=== PATIENT | female | born 1985 | race Caucasian/White ===

== ENCOUNTER 2016-09-21 12:23 | Outpatient (CLI) | payer OTHER ==
[~2016-09-21] VITALS: Ht 152.4 cm; Wt 68.7 kg
[~2016-09-21 12:23] MED LIST: CIPR500T4 PO; INSU100V23 SC; NPH,100V10 SC; ONDA4TAB35 PO; TRAM50TA2 PO
[2016-09-21] MEDS ORDERED: ONDANSETRON 4 MG INJ IV STA (12:40)
[2016-09-21] MEDS ORDERED: LACTATED RINGER'S 1,000 ML IV* SCH (13:00)
[2016-09-21 13:06] VITALS: BP 154/90; PULSE 92; RESP 20; Ht 152.4 cm; Wt 68.7 kg
--- NOTE | 2016-09-21 13:09 | RADRPT ---
PROCEDURE: OB ultrasound for biophysical profile CLINICAL INDICATION: labor TECHNIQUE: Multiple sonographic images of the pelvis were obtained. Transabdominal views of the g ravid uterus are available for review. The images were reviewed on a PACS workstation. COMPARISON: None FINDINGS: breathing movement = 2/2 tone = 2/2 motion = 2/2 JAYCEE = 2/2 JAYCEE = 12.2 cm Single live intrauterine with cardiac activity, which was not recorded. posit ion is breech. The placenta is posterior. IMPRESSION: 1. Single live intrauterine gestation. 2. Biophysical profile = 8/8. 3. JAYCEE = 12.2 cm. 4. Breech presentation. RPTAT: HH .Toshia Escobedo MD, Date Time Electronically viewed and signed by .Toshia Escobedo MD, on 09/21/2016 13:08 .G/
[2016-09-21 13:43] LABS: ADD SCAN DIFF NO
[2016-09-21] MEDS ORDERED: PRENAT PO (13:48)
[2016-09-21] MEDS ORDERED: INSU100C SQ (13:50)
--- NOTE | 2016-09-21 13:50 | HP ---
Date/Time of Note Date/Time of Note DATE: 09/21/16 TIME: 13:42 OB - History Hx of Present Free Text/Dictation OB Triage Pt is a 31yo at 25+1 with T2DM and hx of C/S x3 between 36 and 37wks GA for PIH, now presenting to OB triage c/o bilateral lower quadrant pain preceded by multiple episodes of N/V/D after eating chicken dinner last night. Pt reports feeling hungry but being unable to tolerate food. She attempted to eat this AM and vomited twice. Reports decreased FM this afternoon although had normal FM this AM. Denies LOF, VB, UCs, RIVERS, visual changes or RUQ pain. PROCEDURE: OB ultrasound for biophysical profile CLINICAL INDICATION: labor TECHNIQUE: Multiple sonographic images of the pelvis were obtained. Transabdominal views of the gravid uterus are available for review. The images were reviewed on a PACS workstation. COMPARISON: None FINDINGS: breathing movement = 2/2 tone = 2/2 motion = 2/2 JAYCEE = 2/2 JAYCEE = 12.2 cm Single live intrauterine with cardiac activity, which was not recorded. position is breech. The placenta is posterior. IMPRESSION: 1. Single live intrauterine gestation. 2. Biophysical profile = 8/8. 3. JAYCEE = 12.2 cm. 4. Breech presentation. Estimated Due Date: Jan 03, 2017 : 5 Para: 3 Care: Good Care Obstetrical Complications: Other (T2DM on insulin) Past Family/Social History * Past Medical, Surgical, Family and Obstetric Histories reviewed with patient. chart not available. OB Admission Exam Vital Signs Vital Signs Vital Signs Date Time Temp Pulse Resp B/P Pulse Ox O2 Delivery O2 Flow Rate FiO2 09/21/16 13:06 98.6 92 20 154/90 Room Air BPs 152/88, 137/77, 117/71, 115/70, 125/67, 120/68, 116/70, 119/74, 119/71 Physical Exam HEENT: WNL Heart: Rhythm Normal Lungs: Clear Abdomen: Abnormal (Min TTP with deep palpation in bilateral lower quadrants. No R/R/G) Extremities: Normal Heart Rate: 150's Accelerations: Accelerations Present (10x10) Decelerations: Variable Decelerations Varibility: Moderate Contractions on Admission: None OB Assessment/Plan Other Assessment: GI distress likely food-related Reassuring status Elevated BPs, unsustained Other plan: Pt with signs/sxs of dehydration on admission. Pt s/p IV hydration and IV antiemetic and able to tolerate POs without N/V prior to discharge home. Pain improved spontaneously as well. Initially pt with mild range BPs which then resolved and remained normal for the majority of triage evaluation. Given pt has hx of PIH with prior pregnancies and protein in urine today, will discharge with 24hr urine collection and strict PreE precautions. Pt remained asymptomatic from PreE standpoint during evaluation. Pt will return to triage in 2d to drop off 24hr urine and for BP check. Will plan to repeat NST/JAYCEE and labs if BPs elevated at that time. In addition to PreE precautions, N/V, PTL and PPROM precautions reviewed as well. Questions answered to patient's satisfaction AYAN BRIONES MD Sep 21, 2016 13:50
[2016-09-21 13:52] LABS: BASOPHILS % 0.2 % (0.0-2.0); EOSINOPHILS % 0.3 % (0.0-7.0); HEMATOCRIT 37.3 % (37.0-47.0); HEMOGLOBIN 12.9 g/dl (12.0-16.0); LYMPHOCYTES # 0.7 10^3/ul (0.8-2.9); LYMPHOCYTES % 6.5 % (15.0-51.0); MEAN CORPUSCULAR HEMOGLOBIN 28.4 pg (29.0-33.0); MEAN CORPUSCULAR HGB CONC 34.6 g/dl (32.0-37.0); MEAN PLATELET VOLUME 11.6 fl (7.4-10.4); MONOCYTE # 0.4 10^3/ul (0.3-0.9); MONOCYTES % 4.1 % (0.0-11.0); NEUTROPHIL # 9.2 10^3/ul (1.6-7.5); NEUTROPHILS % 88.5 % (39.0-77.0); PLATELET COUNT 220 10^3/UL (140-415); RED BLOOD COUNT 4.55 10^6/ul (4.20-5.40); RED CELL DISTRIBUTION WIDTH 15.4 % (11.5-14.5); WHITE BLOOD COUNT 10.4 10^3/ul (4.8-10.8)
[2016-09-21 13:56] LABS: ALBUMIN 3.5 g/dl (3.3-4.9); POTASSIUM 3.9 mmol/L (3.5-5.1)
[2016-09-21 13:58] LABS: CREATININE 0.35 mg/dl (0.44-1.00)
[2016-09-21 13:59] LABS: ALBUMIN/GLOBULIN RATIO 0.94; BILIRUBIN,INDIRECT 0.3 mg/dl (0-1.1); BILIRUBIN,TOTAL 0.3 mg/dl (0.2-1.3); TOTAL PROTEIN 7.2 g/dl (6.1-8.1); URIC ACID 3.1 mg/dl (3.1-7.9)
[2016-09-21 14:00] LABS: CALCIUM 8.6 mg/dl (8.4-10.2)
[2016-09-21] MEDS ORDERED: NPH,100I5 SQ (14:48)
[2016-09-21 15:00] LABS: URINE BLOOD (Dip) POC Negative (NEGATIVE)
[2016-09-21 15:35] LABS: ADD UMIC YES; URINE BILIRUBIN (Dip) NEGATIVE (NEGATIVE); URINE BLOOD (Dip) NEGATIVE (NEGATIVE); URINE COLOR YELLOW (YELLOW); URINE KETONES (Dip) 3+ (NEGATIVE); URINE LEUKOCYTE ESTERASE (Dip) TRACE (NEGATIVE); URINE NITRITE (Dip) NEGATIVE (NEGATIVE); URINE TOTAL PROTEIN (Dip) TRACE (NEGATIVE); URINE UROBILINOGEN (Dip) 0.2 E.U./dL (0.1-1.0)
[2016-09-21 15:53] LABS: URINE RBCS 0-2 /HPF (0)
[2016-09-21 15:54] LABS: BACTERIA,URINE FEW
[2016-09-21 16:16] LABS: BARBITURATES Negative (NEGATIVE); BENZODIAZEPINES Negative (NEGATIVE); CANNABINOIDS Negative (NEGATIVE); COCAINE Negative (NEGATIVE); OPIATES Negative (NEGATIVE)
--- NOTE | 2016-09-21 16:42 | TRIAGE ---
OB Triage Datetime Report Generated by CPN: 09/21/2016 16:42 Datetime: 09/21/2016 15:19 Labor Evaluation Frequency: 0 Monitor Mode: External Duration (sec)2399: 0 Resting Tone [place]: Relaxed Contraction Comments: PT DENIES UC'S AT THIS TIME Heart Rate FHR Baseline Rate: 144 Monitor Mode: External US Variability: Moderate 6-25 bpm Accelerations: 15X15 Decelerations: None Category: Category I Comments: NST REACTIVE FOR GESTATIONAL AGE Datetime: 09/21/2016 14:06 Comments: US READING MATERNAL HR DUE TO MATERNAL POSITION CHANGE Datetime: 09/21/2016 13:46 EGA: 25.1 Maternal Assessment Level of Consciousness: Fully Conscious DTR's/Clonus: DTRs 2+; No Clonus Headache: Denies Blurred Vision: No Respiratory Effort: Unlabored; Regular Rhythm; Equal Expansion Breath Sounds, Left: Clear and Equal Breath Sounds, Right: Clear and Equal Nausea/Vomiting: Denies RUQ Epigastric Pain: Denies Facial Edema: None Fall Risk Assessment History of Falling: (0) No Secondary Diagnosis: (0) No Ambulatory Aid: (0) Bedrest/Nurse Assist IV Therapy: (0) No Gait: (0) Normal/Bedrest/Immobile Mental Status: (0) Oriented to Own Ability Fall Score: 0 Fall Risk Score Definition: No Risk: No action required Datetime: 09/21/2016 13:38 Time of Arrival: 09/21/2016 12:25 Arrived By: Ambulatory Arrived From: Home Chief Complaint: DIONNE LOW QUADRANT PAIN Movement: Present Contractions: Denies/Absent Rupture of Membranes: Denies Vaginal Bleeding: None Vaginal Discharge: Denies Recent Sexual Intercouse: Denies Abdominal Trauma: Not Applicable Patient Complaints: Cramping; Nausea; Vomiting Time Provider Notified: 09/21/2016 12:25 Provider Notified: DR. BRIONES Initial Plan: UA, CBC, CMP, BPP, iv hydration Datetime: 09/21/2016 12:30 Stage of : OB Triage Maternal Assessment Level of Consciousness: Fully Conscious DTR's/Clonus: DTRs 2+; No Clonus Headache: Denies Blurred Vision: No Respiratory Effort: Unlabored; Regular Rhythm; Equal Expansion Breath Sounds, Left: Clear and Equal Breath Sounds, Right: Clear and Equal Nausea/Vomiting: Denies RUQ Epigastric Pain: Denies Lower Extremities Edema: None Degree: None Upper Extremities Edema: None Degree: None Facial Edema: None Temperature Route: Axillary Fall Risk Assessment History of Falling: (0) No Secondary Diagnosis: (0) No Ambulatory Aid: (0) Bedrest/Nurse Assist IV Therapy: (0) No Gait: (0) Normal/Bedrest/Immobile Mental Status: (0) Oriented to Own Ability Fall Score: 0 Fall Risk Score Definition: No Risk: No action required
== END 2016-09-21 15:45 | disposition home or self-care (01) ==
LOC: OBT 12:23 → L-D 12:24 → OBT 15:45
PROVIDERS: ATTEND Obstetrics & Gynecology
DX: O60.03 Preterm labor without delivery, third trimester (principal); Z3A.36 36 weeks gestation of pregnancy
CPT/HCPCS: 76818; 80053; 80076; 80307; 81001; 84560; 85025; 96360; 96374; J2405; J7120; 81003

== ENCOUNTER 2016-09-23 15:00 | Outpatient (CLI) | payer OTHER ==
[~2016-09-23] VITALS: Ht 152.4 cm; Wt 69.8 kg
[~2016-09-23 15:00] MED LIST changes: -CIPR500T4 PO; -INSU100V23 SC; +NPH,100I5 SQ; -NPH,100V10 SC; -ONDA4TAB35 PO; +PRENAT PO; -TRAM50TA2 PO
[2016-09-23 15:38] LABS: COLLECTION PERIOD 24 hrs
--- NOTE | 2016-09-23 15:43 | QN ---
Documentation Comment OB Triage Pt is a 31yo at 25+3 with T2DM and hx of C/S x3 between 36 and 37wks GA for PIH, seen in OB triage 09/21/16 for GI distress and elevated BPs were noted. Pt returns to drop off 24hr urine collection and for BP check. Pt reports normal FM, denies LOF, VB, UCs, RIVERS, visual changes or RUQ pain. Pt states fasting FSBG 98, 2hr PP breakfast 160 VS T 97.9 BP 132/78, 123/69, 120/68 P 88 RR 18 FHT: baseline 150s, mod rahat, +accels, no decels [place]: acontractile FSBG 2hr Accucheck 313 ->270 prior to giving insulin A/P: Hx of PIH with neg 24hr urine and normal BP today Short-acting insulin given for elevated postprandial FSBG Recommended pt f/up at clinic next week to review FSBG PreE precautions, PTL and PPROM precautions reviewed as well Pt to be discharged home Questions answered to patient's satisfaction AYAN BRIONES MD Sep 23, 2016 15:43
[2016-09-23 15:48] VITALS: BP 132/78; PULSE 88; RESP 18; Ht 152.4 cm; Wt 69.8 kg
[2016-09-23] MEDS ORDERED: DEXTROSE 50% 50 ML SYRINGE IV PRN ×4 (17:00)
[2016-09-23] MEDS ORDERED: GLUCOSE GEL 15 GRAM TUBE BUCCAL PRN ×2 (17:00)
[2016-09-23] MEDS ORDERED: GLUCAGON 1 MG INJ IM PRN ×2 (17:00)
[2016-09-23] MEDS ORDERED: GLUCOSE GEL 15 GRAM TUBE PO PRN ×4 (17:00)
[2016-09-23 17:02] LABS: COLLECTION PERIOD 24 hrs; SCRET 0.35 mg/dl (0.44-1.00); URINE TOTAL PROTEIN < 5.0 mg/dl
[2016-09-23] MEDS ORDERED: INSULIN ASPART [NOVOLOG] 3 ML PEN SC ONE (18:00)
[2016-09-23] MEDS ORDERED: INSULIN ASPART [NOVOLOG] 3 ML PEN SC SCH (19:35)
[2016-09-23] MEDS ORDERED: ACCU-CHEK XX SCH (19:35)
== END 2016-09-23 18:28 | disposition home or self-care (01) ==
LOC: OBT 15:00 → L-D 15:01 → OBT 18:28
PROVIDERS: ATTEND Obstetrics & Gynecology
DX: O13.2 Gestational [pregnancy-induced] hypertension without significant proteinuria, second trimester (principal); O24.912 Unspecified diabetes mellitus in pregnancy, second trimester; Z3A.25 25 weeks gestation of pregnancy; Z79.4 Long term (current) use of insulin
CPT/HCPCS: 36415; 82575; 82962; 84156; 96372; J1815; Z7500; G0463

== ENCOUNTER 2016-11-11 20:13 | Inpatient (IN) | payer OTHER ==
[~2016-11-11] VITALS: Ht 152.4 cm; Wt 70.7 kg
[2016-11-11 20:28] VITALS: Ht 152.4 cm; Wt 70.7 kg
[2016-11-11 20:29] VITALS: BP 141/88; PULSE 85; RESP 18
[2016-11-11] MEDS ORDERED: ASPI81TA3 PO (20:41)
[2016-11-11] MEDS ORDERED: METF500T4 PO ×2 (20:42)
[2016-11-11] MEDS ORDERED: LACTATED RINGER'S 1,000 ML IV ONE (21:00)
[2016-11-11] MEDS ORDERED: LACTATED RINGER'S 1,000 ML IV* SCH (21:00)
[2016-11-11 21:31] LABS: ADD SCAN DIFF NO
[2016-11-11 21:33] LABS: BASOPHILS % 0.1 % (0.0-2.0); EOSINOPHILS % 0.6 % (0.0-7.0); HEMATOCRIT 35.1 % (37.0-47.0); HEMOGLOBIN 11.6 g/dl (12.0-16.0); LYMPHOCYTES # 1.6 10^3/ul (0.8-2.9); LYMPHOCYTES % 23.8 % (15.0-51.0); MEAN CORPUSCULAR HEMOGLOBIN 27.5 pg (29.0-33.0); MEAN CORPUSCULAR VOLUME 83.2 fl (82.0-101.0); MEAN PLATELET VOLUME 11.6 fl (7.4-10.4); MONOCYTE # 0.6 10^3/ul (0.3-0.9); MONOCYTES % 8.5 % (0.0-11.0); NEUTROPHIL # 4.5 10^3/ul (1.6-7.5); NEUTROPHILS % 66.7 % (39.0-77.0); PLATELET COUNT 215 10^3/UL (140-415); RED BLOOD COUNT 4.22 10^6/ul (4.20-5.40); WHITE BLOOD COUNT 6.8 10^3/ul (4.8-10.8)
[2016-11-11 21:36] LABS: ADD UMIC YES; URINE BILIRUBIN (Dip) NEGATIVE (NEGATIVE); URINE BLOOD (Dip) TRACE (NEGATIVE); URINE COLOR LT. YELLOW (YELLOW); URINE GLUCOSE (Dip) >=1000 % (NEGATIVE); URINE KETONES (Dip) 15 (NEGATIVE); URINE LEUKOCYTE ESTERASE (Dip) TRACE (NEGATIVE); URINE NITRITE (Dip) POSITIVE (NEGATIVE); URINE TOTAL PROTEIN (Dip) NEGATIVE (NEGATIVE); URINE UROBILINOGEN (Dip) 0.2 E.U./dL (0.1-1.0)
[2016-11-11 21:48] LABS: BACTERIA,URINE MODERATE
[2016-11-11 21:52] LABS: ALBUMIN 3.1 g/dl (3.3-4.9); INR 0.98
[2016-11-11 21:53] LABS: POTASSIUM 4.6 mmol/L (3.5-5.1)
[2016-11-11 21:55] LABS: ALBUMIN/GLOBULIN RATIO 0.72; BILIRUBIN,INDIRECT 0.3 mg/dl (0-1.1); BILIRUBIN,TOTAL 0.3 mg/dl (0.2-1.3); CREATININE 0.37 mg/dl (0.44-1.00); TOTAL PROTEIN 7.4 g/dl (6.1-8.1)
[2016-11-11 21:56] LABS: CALCIUM 8.7 mg/dl (8.4-10.2); URIC ACID 3.8 mg/dl (3.1-7.9)
[2016-11-11] MEDS ORDERED: NPH, HUMAN INSULIN ISOPHANE 3ML VIAL SC ONE (22:30)
[2016-11-11] MEDS ORDERED: MAGNESIUM SULFATE 4 GM/100 ML 100 ML IV ONE (22:30)
[2016-11-11] MEDS: LACTATED RINGER'S 1,000 ML IV SCH (22:49)
[2016-11-11] MEDS: MAGNESIUM SULFATE 20 GM/500 ML 500 ML IV SCH (23:22)
--- NOTE | 2016-11-11 23:53 | HP ---
Date/Time of Note Date/Time of Note DATE: 11/11/16 TIME: 23:50 OB - History Hx of Present Free Text/Dictation 31+wks GA Previous 3 c/sec Chronic HTN Uncontrolled DM : 4 Para: 3 Care: Limited Care Ultrasounds: Normal mid trimester US Obstetrical Complications: Gestational Diabetes, Gestational Hypertension Medical Complications: None Past Family/Social History * Past Medical, Surgical, Family and Obstetric Histories reviewed from chart. OB Admission Exam Vital Signs Vital Signs Vital Signs Date Time Temp Pulse Resp B/P Pulse Ox O2 Delivery O2 Flow Rate FiO2 11/11/16 20:29 98.2 85 18 141/88 Room Air Physical Exam Abdomen: WNL Extremities: Normal Reflexes: Normal Membranes: Intact Heart Rate: 140's Accelerations: Accelerations Present Decelerations: No Decelerations Varibility: Moderate Contractions on Admission: None Last 72 hours Lab Results CBC & BMP 11/11/16 21:05 Liver Function Test 11/11/16 21:05 Alanine Aminotransferase (ALT/SGPT) 13 Albumin 3.1 L Alkaline Phosphatase 120 Aspartate Amino Transf (AST/SGOT) 29 Direct Bilirubin 0.00 Total Protein 7.4 OB Assessment/Plan Reason for admission: observation Plan: Expectant Management Other plan: Prenatalogy consult Steroids PIH panel Ultrasound Blood sugar log PRINCESS DIAZ M.D. November 11, 2016 23:53
[2016-11-12] MEDS: BETAMET NA PHOS/AC(6 MG/ML) 5ML INJ IM SCH (00:25)
--- NOTE | 2016-11-12 01:13 | TRIAGE ---
OB Triage Datetime Report Generated by CPN: 11/12/2016 01:13 Datetime: 11/12/2016 00:15 Stage of : Antepartum Assessment Type: Admission Assessment Vaginal Bleeding: None Maternal Assessment Level of Consciousness: Fully Conscious DTR's/Clonus: DTRs 2+; No Clonus Headache: Denies Blurred Vision: No Respiratory Effort: Unlabored; Regular Rhythm; Equal Expansion Breath Sounds, Left: Clear and Equal Breath Sounds, Right: Clear and Equal Nausea/Vomiting: Denies RUQ Epigastric Pain: Denies Lower Extremities Edema: None Upper Extremities Edema: None Facial Edema: None Fall Risk Assessment History of Falling: (0) No Secondary Diagnosis: (0) No Ambulatory Aid: (0) Bedrest/Nurse Assist IV Therapy: (20) Yes Gait: (0) Normal/Bedrest/Immobile Mental Status: (0) Oriented to Own Ability Fall Score: 20 Fall Risk Score Definition: No Risk: No action required Pain Assessment Pain Scale: 0 Datetime: 11/11/2016 23:38 Stage of : OB Triage Datetime: 11/11/2016 23:25 Stage of : OB Triage Datetime: 11/11/2016 23:22 Stage of : OB Triage Datetime: 11/11/2016 23:18 Stage of : OB Triage Labor Evaluation Frequency: IRREGULAR Monitor Mode: External Duration (sec)2399: 50-80 Quality: Mild Resting Tone [place]: Relaxed Heart Rate FHR Baseline Rate: 135 Monitor Mode: External US Variability: Moderate 6-25 bpm Accelerations: 15X15 Decelerations: None Pain Assessment Pain Scale: 8 Pain Presence: Intermittent Pain Type: Contraction Pain Location: Abdomen; Back Pain Goal: 3 Pain Relief Measures: Comfort Measures Datetime: 11/11/2016 23:10 Stage of : OB Triage Datetime: 11/11/2016 22:49 Stage of : OB Triage Datetime: 11/11/2016 22:18 Stage of : OB Triage Labor Evaluation Frequency: IRREGULAR Monitor Mode: External Duration (sec)2399: 50-80 Quality: Mild Resting Tone [place]: Relaxed Heart Rate FHR Baseline Rate: 145 Monitor Mode: External US Variability: Moderate 6-25 bpm Accelerations: 15X15 Decelerations: None Pain Assessment Pain Scale: 8 Pain Presence: Intermittent Pain Type: Contraction Pain Location: Abdomen; Back Pain Goal: 3 Pain Relief Measures: Comfort Measures Datetime: 11/11/2016 22:16 Stage of : OB Triage Datetime: 11/11/2016 21:20 Vaginal Exam Membrane Status: Intact Datetime: 11/11/2016 21:18 Stage of : OB Triage Labor Evaluation Frequency: 2-5 Monitor Mode: External Duration (sec)2399: 50-80 Quality: Mild Pattern: Normal: <= 5 Contractions in 10 Minutes Resting Tone [place]: Relaxed Heart Rate FHR Baseline Rate: 145 Monitor Mode: External US Variability: Moderate 6-25 bpm Accelerations: 15X15 Decelerations: None Category: Category I Pain Assessment Pain Scale: 8 Pain Presence: Intermittent Pain Type: Contraction Pain Location: Abdomen; Back Pain Goal: 3 Pain Relief Measures: Comfort Measures Datetime: 11/11/2016 20:26 Assessment Type: Triage Maternal Assessment Level of Consciousness: Fully Conscious DTR's/Clonus: DTRs 2+; No Clonus Headache: Denies Blurred Vision: No Respiratory Effort: Unlabored; Regular Rhythm; Equal Expansion Breath Sounds, Left: Clear and Equal Breath Sounds, Right: Clear and Equal Nausea/Vomiting: Denies RUQ Epigastric Pain: Denies Lower Extremities Edema: None Degree: None Upper Extremities Edema: None Degree: None Facial Edema: None Fall Risk Assessment History of Falling: (0) No Secondary Diagnosis: (0) No Ambulatory Aid: (0) Bedrest/Nurse Assist IV Therapy: (0) No Gait: (0) Normal/Bedrest/Immobile Mental Status: (0) Oriented to Own Ability Fall Score: 0 Fall Risk Score Definition: No Risk: No action required Datetime: 11/11/2016 20:24 Time of Arrival: 11/11/2016 20:09 EGA: 32.3 Arrived By: Ambulatory Arrived From: Home Movement: Present Contractions: Irregular Time Contractions Began: 11/11/2016 12:00 Rupture of Membranes: Denies Vaginal Bleeding: Normal Show Vaginal Discharge: Denies Recent Sexual Intercouse: Denies Abdominal Trauma: Not Applicable Patient Complaints: Contractions Time Provider Notified: 11/11/2016 20:45 Provider Notified: EMILY Initial Plan: MONITOR PT Datetime: 11/11/2016 20:18 Contraction Comments: TOCO APPLIED Comments: US APPLIED Datetime: 09/23/2016 18:22 Stage of : OB Triage Datetime: 09/23/2016 18:00 Bedside Blood Glucose: 277 (Annotations: DR BRIONES NOTIFIED OF CURRENT BS, INSULIN ORDER CHANGED FROM 15UNITS TO 10 UNITS) Datetime: 09/23/2016 16:59 Time of Arrival: 09/23/2016 15:01 EGA: 25.3 Arrived By: Ambulatory Arrived From: Home Chief Complaint: FOLLOW UP FOR PIH , RETURN OF 24 HOUR URINE Movement: Present Contractions: Denies/Absent Rupture of Membranes: Denies Vaginal Bleeding: None Vaginal Discharge: Denies Recent Sexual Intercouse: Denies Abdominal Trauma: Not Applicable Patient Complaints: None Time Provider Notified: 09/23/2016 15:30 Provider Notified: ANALI Initial Plan: MONITOR, 24 HOUR URINE, ACCU CHECK, Bedside Blood Glucose: 304 (Annotations: REPEAT [address] BRIONES, INSULIN 15UNITS ORDE RED) Datetime: 09/23/2016 16:10 Stage of : OB Triage Datetime: 09/23/2016 16:06 Labor Evaluation Frequency: 0 Monitor Mode: External Resting Tone [place]: Relaxed Heart Rate FHR Baseline Rate: 150 Monitor Mode: External US Variability: Moderate 6-25 bpm Category: Category I Pain Assessment Pain Scale: 0 Pain Presence: None/Denies Pain Type: N/A Pain Goal: 3 Datetime: 09/23/2016 15:41 Stage of : OB Triage Assessment Type: Triage Maternal Assessment Level of Consciousness: Fully Conscious DTR's/Clonus: DTRs 2+; No Clonus Headache: Denies Blurred Vision: No Respiratory Effort: Unlabored; Regular Rhythm; Equal Expansion Breath Sounds, Left: Clear and Equal Breath Sounds, Right: Clear and Equal Nausea/Vomiting: Denies RUQ Epigastric Pain: Denies Facial Edema: None Temperature Route: Axillary Fall Risk Assessment History of Falling: (0) No Secondary Diagnosis: (0) No Ambulatory Aid: (0) Bedrest/Nurse Assist IV Therapy: (0) No Gait: (0) Normal/Bedrest/Immobile Mental Status: (0) Oriented to Own Ability Fall Score: 0 Fall Risk Score Definition: No Risk: No action required Labor Evaluation Frequency: 0 Monitor Mode: External Resting Tone [place]: Relaxed Heart Rate FHR Baseline Rate: 150 Monitor Mode: External US Variability: Moderate 6-25 bpm Decelerations: None Category: Category II Pain Assessment Pain Scale: 0 Pain Presence: None/Denies Pain Type: N/A Pain Goal: 3 Pain Relief Measures: Comfort Measures Datetime: 09/23/2016 15:30 Stage of : OB Triage Datetime: 09/21/2016 13:46 Time of Arrival: 09/23/2016 15:01 EGA: 25.3 Arrived By: Ambulatory Arrived From: Home Chief Complaint: F/U R/O PIH, RETURNING WITH 24 HOUR URINE, DENIES LEAKING OF FLUID, UC'S OR BLE EDING Movement: Present Contractions: Denies/Absent Rupture of Membranes: Denies Vaginal Bleeding: None Vaginal Discharge: Denies Recent Sexual Intercouse: Denies Abdominal Trauma: Not Applicable Patient Complaints: None Time Provider Notified: 09/23/2016 15:01 Provider Notified: ANALI Initial Plan: MONITOR, 24 HOUR URINE RESULTS, BP'S Q 20 MIN Fall Score: 0 Fall Risk Score Definition: No Risk: No action required Datetime: 09/21/2016 12:30 Fall Score: 0 Fall Risk Score Definition: No Risk: No action required
--- NOTE | 2016-11-12 01:18 | RADRPT ---
PROCEDURE: ULTRASOUND BIOPHYSICAL PROFILE CLINICAL INDICATION: 31-year-old female in labor for viability. TECHNIQUE: Multiple sonographic images were obtained in order to perform a biophysical profile The images were reviewed on a PACS workstation. COMPARISON: Ultrasound OB obtained concurrently. FINDINGS: The results of the biophysical profile are as follows: breathing movement = 2/2 Gross body movement = 2/2 tone = 2/2 Qualitative amniotic fluid volume = 2/2 Amniotic fluid index equals 33.4 cm. This yields a biophysical profile score of 8/8. IMPRESSION: 1. Biophysical profile score is 8/8. 2. Polyhydramnios. .Abelardo Ramos MD, MD Date Time Electronically viewed and signed by .Abelardo Ramos MD, on 11/12/2016 01:18 .Danielle
--- NOTE | 2016-11-12 01:26 | RADRPT ---
PROCEDURE: ULTRASOUND OBSTETRICAL CLINICAL INDICATION: 31-year-old female in labor for size and date determination. TECHNIQUE: Multiple sonographic images of the pelvis were obtained. The images were reviewed on a PACS workstation. COMPARISON: Ultrasound pelvis profile obtained concurrently. FINDINGS: There is a single viable intrauterine gestation. Cardiac activity is present with 134 beats per min henry. There is a transverse maternal left presentation. Measurements were made in order to determine age. The results are as follows: BPD = 7.72 cm, HC = 28.79 cm, AC = 33.41 cm, FL = 6.25 cm. This yields and estimated gestational ag e of approximately 33 weeks 1 day. The estimated date of delivery is December 29, 2016. The EFW = 2507 +/- 376 g (5 lb 8 oz). The GP is 96%. The placenta is fundal. There is no evidence for an abruption or placenta previa. The amniotic fluid index equals 33.4 cm. IMPRESSION: 1. Single viable intrauterine gestation of approximately 33 weeks 1 day with transverse maternal le ft presentation. The estimated date of delivery is December 29, 2016. 2. Polyhydramnios with enlarged abdominal circumference with GP of 96%. This is suggestive of macrosomia. Further evaluation is indicated. .Abelardo Ramos MD, Date Time Electronically viewed and signed by .Abelardo Ramos MD, MD on 11/12/2016 01:26 .M/
--- NOTE | 2016-11-12 01:27 | RADRPT ---
PROCEDURE: ULTRASOUND OBSTETRICAL CLINICAL INDICATION: 31-year-old female labor for cervical length evaluation. TECHNIQUE: Multiple sonographic images of the pelvis were obtained. The images were reviewed on a PACS workstation. COMPARISON: Ultrasound OB and biophysical profile obtained concurrently. FINDINGS: The cervix appears closed with a length of 3.8 cm. IMPRESSION: The cervix appears closed with a length of 3.8 cm. .Abelardo Ramos MD, MD Date Time Electronically viewed and signed by .Abelardo Ramos MD, on 11/12/2016 01:27 .M/
[2016-11-12 07:16] LABS: ADD SCAN DIFF NO
[2016-11-12 07:22] LABS: EOSINOPHILS % 0.1 % (0.0-7.0); HEMATOCRIT 36.2 % (37.0-47.0); LYMPHOCYTES # 0.6 10^3/ul (0.8-2.9); LYMPHOCYTES % 9.1 % (15.0-51.0); MEAN CORPUSCULAR HEMOGLOBIN 28.2 pg (29.0-33.0); MEAN CORPUSCULAR HGB CONC 33.1 g/dl (32.0-37.0); MEAN PLATELET VOLUME 11.7 fl (7.4-10.4); MONOCYTE # 0.1 10^3/ul (0.3-0.9); MONOCYTES % 0.9 % (0.0-11.0); NEUTROPHIL # 5.9 10^3/ul (1.6-7.5); PLATELET COUNT 208 10^3/UL (140-415); RED BLOOD COUNT 4.26 10^6/ul (4.20-5.40); RED CELL DISTRIBUTION WIDTH 13.5 % (11.5-14.5); WHITE BLOOD COUNT 6.7 10^3/ul (4.8-10.8)
[2016-11-12] MEDS: LACTATED RINGER'S 1,000 ML IV SCH ×2 (07:23→20:30)
[2016-11-12] MEDS ORDERED: metFORMIN 500 MG TAB PO SCH ×2 (07:35→11:30)
[2016-11-12 07:51] LABS: ALBUMIN 3.2 g/dl (3.3-4.9)
[2016-11-12 07:52] LABS: POTASSIUM 4.4 mmol/L (3.5-5.1)
[2016-11-12 07:54] LABS: ALBUMIN/GLOBULIN RATIO 0.76; BILIRUBIN,INDIRECT 0.3 mg/dl (0-1.1); BILIRUBIN,TOTAL 0.3 mg/dl (0.2-1.3); CREATININE 0.41 mg/dl (0.44-1.00); TOTAL PROTEIN 7.4 g/dl (6.1-8.1)
[2016-11-12 07:55] LABS: CALCIUM 7.6 mg/dl (8.4-10.2); URIC ACID 3.6 mg/dl (3.1-7.9)
[2016-11-12 08:07] LABS: INR 0.92; PROTIME 12.4 Sec (12.2-14.2)
[2016-11-12 08:08] LABS: PARTIAL THROMBOPLASTIN TIME 27.7 Sec (25.0-35.0)
[2016-11-12] MEDS: MAGNESIUM SULFATE 20 GM/500 ML 500 ML IV SCH ×2 (08:25→17:21)
[2016-11-12] MEDS: ACCU-CHEK XX SCH ×3 (08:26→21:06)
--- NOTE | 2016-11-12 09:20 | PN ---
Date/Time of Note Date/Time of Note DATE: 11/12/16 TIME: 09:15 OB Subjective Subjective Subjective Patient is a 31-year-old 4 para 3 at 31+ weeks of gestation Previous obstetrical history significant for 3 prior C-sections, history of PIH with all 3 prior pregnancies Patient is pre-gestational diabetes and presents with uncontrolled DM and elevated blood pressures 148/95 Patient reports that she has been on 20 units of NPH nightly and metformin 500 mg p.o. twice daily She is not currently on blood pressure medication She has had care with a physician who does not come to [facility] OB Objective Objective Objective Patient reports positive movement, no contractions, no leaking fluid, no vaginal bleeding OB ultrasound indicating transverse presentation with estimated weight of 2507 g and evidence of increased amniotic fluid consistent with polyhydramnios and estimated weight of 96 percentile consistent with macrosomia PIH labs within normal limits Biophysical profile 8 out of 8 ROCEDURE: ULTRASOUND OBSTETRICAL 11/11/16 CLINICAL INDICATION: 31-year-old female in labor for size and date determination. TECHNIQUE: Multiple sonographic images of the pelvis were obtained. The images were reviewed on a PACS workstation. COMPARISON: Ultrasound pelvis profile obtained concurrently. FINDINGS: There is a single viable intrauterine gestation. Cardiac activity is present with 134 beats per minute. There is a transverse maternal left presentation. Measurements were made in order to determine age. The results are as follows: BPD = 7.72 cm, HC = 28.79 cm, AC = 33.41 cm, FL = 6.25 cm. This yields and estimated gestational age of approximately 33 weeks 1 day. The estimated date of delivery is December 29, 2016. The EFW = 2507 +/- 376 g (5 lb 8 oz). The GP is 96%. The placenta is fundal. There is no evidence for an abruption or placenta previa. The amniotic fluid index equals 33.4 cm. IMPRESSION: 1. Single viable intrauterine gestation of approximately 33 weeks 1 day with transverse maternal left presentation. The estimated date of delivery is December 29, 2016. 2. Polyhydramnios with enlarged abdominal circumference with GP of 96%. This is suggestive of macrosomia. Further evaluation is indicated. .Abelardo Ramos MD, Date Time Electronically viewed and signed by .Abelardo Ramos MD, on 11/12/2016 01:26 .M/ FINDINGS: The results of the biophysical profile are as follows: breathing movement = 2/2 Gross body movement = 2/2 tone = 2/2 Qualitative amniotic fluid volume = 2/2 Amniotic fluid index equals 33.4 cm. This yields a biophysical profile score of 8/8. IMPRESSION: 1. Biophysical profile score is 8/8. 2. Polyhydramnios HEENT: WNL Heart: Rhythm Normal Lungs: Clear, Equal Abdomen: WNL Extremities: Normal Reflexes: Normal Cervical Dilatation: None Heart Rate: 130's Accelerations: Accelerations Present Decelerations: No Decelerations Varibility: Marked Contractions on Admission: None OB Assessment/Plan Other Assessment: Pre-gestational diabetes currently on NPH and metformin Rule out PIH Plan: Other Other plan: Currently collecting 24 hour urine protein Patient status post 1 dose of betamethasone for lung maturity-she will receive the second dose tonight Continue with current NPH and metformin We will add daily baby aspirin and vitamins Perinatologist consult has been requested RADHA FIGUEROA MD November 12, 2016 09:20
[2016-11-12] MEDS: MULTIVIT/MIN/FOLATE/IRON/PREN TAB PO SCH (09:26)
[2016-11-12] MEDS ORDERED: GLUCOSE GEL 15 GRAM TUBE BUCCAL PRN (09:30)
[2016-11-12] MEDS ORDERED: GLUCOSE GEL 15 GRAM TUBE PO PRN ×2 (09:30)
[2016-11-12] MEDS ORDERED: DEXTROSE 50% 50 ML SYRINGE IV PRN ×2 (09:30)
[2016-11-12] MEDS ORDERED: GLUCAGON 1 MG INJ IM PRN (09:30)
[2016-11-12] MEDS: INSULIN ASPART [NOVOLOG] 3 ML PEN SC SCH ×3 (10:59→21:16)
[2016-11-12 12:11] LABS: BARBITURATES NEGATIVE (NEGATIVE); BENZODIAZEPINES NEGATIVE (NEGATIVE); CANNABINOIDS NEGATIVE (NEGATIVE); COCAINE NEGATIVE (NEGATIVE); OPIATES NEGATIVE (NEGATIVE)
[2016-11-12] MEDS ORDERED: ACCU-CHEK XX SCH ×3 (14:00→20:05)
--- NOTE | 2016-11-12 18:29 | PERINOTE ---
Date/Time of Note Date/Time of Note DATE: 11/12/16 TIME: 18:17 Assessment/Recommendations Other Assessments uterine contractions, now resolved History of preeclampsia with prior pregnancies. BP currently normal and labs are unremarkable (except for blood glucose) and 24 hour urine for protein is pending. Diabetes out of control. Elevated HgbA1c suggests that this is not a new problem, although the steroid injection is likely affecting this. Recommendations: Would initiate an insulin regimen (ordered), and continue sliding scale for 3-5 days as needed. Would consider low dose aspirin daily to reduce the risk for recurrent preeclampsia. Could consider earlier delivery (at 38 weeks GA) due to three prior Cesareans OB Subjective Free Text/Dictaton Patient admitted for suspected labor. Patient also with type 2 diabetes, treated with metformin and NPH at HS. She also reports hypertension with all prior pregnancies, requiring delivery between 35 and 37 weeks GA HD# 2 IUP @ 32W4D Complaints/Overnight events blood glucose out of control after administration of betamethasone Current Medications Current Medications Lactated Ringer's 1,000 ml @ 75 mls/hr [id number] IV Last administered on 07:23; Admin Dose 75 MLS/HR; Start 11/11/16 at 22:15 Magnesium Sulfate (Magnesium Sulfate 20 Gm/500 ml) 500 ml @ 50 mls/hr Q10H IV Last administered on 11/12/16 17:21; Admin Dose 50 MLS/HR; Start 11/11/16 at 22 :15 Prenat Multivit/ [place]/Iron/Folic Ac ( S) 1 tab DAILY PO Last administered on 11/12/16 09:26; Admin Dose 1 TAB; Start 11/12/16 at 09:00 Betamethasone Acet/Betameth SodPhos (Celestone Soluspan) 12 mg Q24H IM Last administered on 11/12/16 00:25; Admin Dose 12 MG; Start 11/12/16 at 00:00; Stop 11/13/16 at 00:01 Acetaminophen (Tylenol Tab) 650 mg Q4H PRN PO PAIN AND OR ELEVATED TEMP; Start 11/12/16 at 00:00 Insulin Human NPH (Humulin N) 20 unit HS SC ; Start 11/12/16 at 21:00 Aspirin (Aspirin) 81 mg DAILY@20 PO ; Start 11/12/16 at 20:00 Miscellaneous Information 1 ea NOTE XX ; Start 11/12/16 at 09:30 Glucose (Glutose) 15 gm Q15M PRN PO DECREASED GLUCOSE; Start 11/12/16 at 09:30 Glucose (Glutose) 22.5 gm Q15M PRN PO DECREASED GLUCOSE; Start 11/12/16 at 09: 30 Dextrose (D50w Syringe) 25 ml Q15M PRN IV DECREASED GLUCOSE; Start 11/12/16 at 09:30 Dextrose (D50w Syringe) 50 ml Q15M PRN IV DECREASED GLUCOSE; Start 11/12/16 at 09:30 Glucagon (Glucagen) 1 mg Q15M PRN IM DECREASED GLUCOSE; Start 11/12/16 at 09:30 Glucose (Glutose) 15 gm Q15M PRN BUCCAL DECREASED GLUCOSE; Start 11/12/16 at 09 :30 Diagnostic Test (Pha) (Accu-Chek) 1 ea FBSPP XX Last administered on 11/12/16t 14:49; Admin Dose 1 EA; Start 11/12/16 at 14:00 Past Medical History Medical History: diabetes Surgical History: other ( delivery x 3) 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 hypertension x 3) Para: 3 : 4 LMP (Females 10-50): Family History Significant Family History: diabetes Social History Smoker: non-smoker Alcohol: none Drugs: none OB Admission Exam Physical Exam Vitals: Vital Signs Date Time Temp Pulse Resp B/P Pulse Ox O2 Delivery O2 Flow Rate FiO2 11/11/16 20:29 98.2 85 18 141/88 Room Air 11/12/16 127/76 Heart: Rhythm Normal Lungs: Clear Abdomen: WNL Heart Rate: 130's Decelerations: No Decelerations Varibility: Moderate Contractions on Admission: None (no UCs at the time of consultation) Last 72 hourBlood Glucose Bedside Glucose - 72 Hours Test 11/12/16 08:22 11/12/16 10:25 11/12/16 11:45 11/12/16 14:46 Bedside Glucose 281mg/dL (70-220) H 385mg/dL (70-220) H 328mg/dL (70-220) H 272mg/dL (70-220) H Last 72 hours Lab Results CBC & BMP 11/11/16 21:05 11/12/16 06:02 Liver Function Test 11/11/16 21:05 11/12/16 06:02 Alanine Aminotransferase (ALT/SGPT) 13 20 Albumin 3.1 L 3.2 L Alkaline Phosphatase 120 142 H Aspartate Amino Transf (AST/SGOT) 29 12 L Direct Bilirubin 0.00 0.00 Total Protein 7.4 7.4 Hemoglobin A1C Test 11/12/16 06:02 Hemoglobin A1c 10.8 H Magnesium Level Test 11/12/16 06:02 11/12/16 11:55 Magnesium Level 4.9 H 5.2 *H DONNA BALDWIN MD November 12, 2016 18:28
[2016-11-12] MEDS ORDERED: INSULIN ASPART [NOVOLOG] 3 ML PEN SC PRN (18:30)
[2016-11-12] MEDS ORDERED: NPH, HUMAN INSULIN ISOPHANE 3ML VIAL SC SCH (21:00)
[2016-11-12] MEDS ORDERED: INSULIN ISOPHANE (NPH) 10 ML INJ SC SCH (21:00)
[2016-11-12] MEDS: ASPIRIN 81 MG TAB PO SCH (21:05)
[2016-11-12] MEDS: NPH, HUMAN INSULIN ISOPHANE 3ML VIAL SC SCH (21:17)
[2016-11-13] MEDS: BETAMET NA PHOS/AC(6 MG/ML) 5ML INJ IM SCH (00:07)
[2016-11-13] MEDS: INSULIN ASPART [NOVOLOG] 3 ML PEN SC SCH ×8 (01:00→21:00)
[2016-11-13 02:14] LABS: SCRET 0.41 mg/dl (0.44-1.00)
[2016-11-13] MEDS: MAGNESIUM SULFATE 20 GM/500 ML 500 ML IV SCH (04:09)
[2016-11-13] MEDS: ACCU-CHEK XX SCH ×4 (07:30→21:30)
[2016-11-13] MEDS ORDERED: INSULIN ISOPHANE (NPH) 10 ML INJ SC SCH (07:30)
[2016-11-13] MEDS: MULTIVIT/MIN/FOLATE/IRON/PREN TAB PO SCH (08:59)
[2016-11-13] MEDS: NPH, HUMAN INSULIN ISOPHANE 3ML VIAL SC SCH ×2 (09:02→21:13)
--- NOTE | 2016-11-13 09:44 | QN ---
Documentation Comment 31+ weeks of gestation , 3 prior C-sections, PIH and uncontrolled DM polyhydramnios s/p Mg and steroids No Headache No blurry vision No epigastric pain Patient reports that she has been on 20 units of NPH nightly and metformin 500 mg p.o. twice daily VS stable NST reassuring [place] No CTX --->managment as Per Perinatalogist PRINCESS DIAZ M.D. November 13, 2016 09:44
[2016-11-13] MEDS ORDERED: DOCUSATE SODIUM 100 MG CAP PO ONE (12:00)
[2016-11-13] MEDS: ASPIRIN 81 MG TAB PO SCH (20:27)
[2016-11-14] MEDS: INSULIN ASPART [NOVOLOG] 3 ML PEN SC SCH ×6 (03:15→17:49)
[2016-11-14] MEDS: ACCU-CHEK XX SCH ×4 (08:34→21:20)
[2016-11-14] MEDS: NPH, HUMAN INSULIN ISOPHANE 3ML VIAL SC SCH ×2 (08:51→21:18)
[2016-11-14] MEDS: MULTIVIT/MIN/FOLATE/IRON/PREN TAB PO SCH (08:58)
--- NOTE | 2016-11-14 17:03 | QN ---
Documentation Comment pt doing well no complaints vss bp stable exam wnl iup 32.6 poorly controlled DM-on insulin continue insulin NIESHA Santaan MD November 14, 2016 17:03
[2016-11-14] MEDS: ASPIRIN 81 MG TAB PO SCH (20:22)
[2016-11-15] MEDS: ACCU-CHEK XX SCH ×5 (08:30→21:18)
[2016-11-15] MEDS: INSULIN ASPART [NOVOLOG] 3 ML PEN SC SCH ×5 (08:42→21:15)
[2016-11-15] MEDS: NPH, HUMAN INSULIN ISOPHANE 3ML VIAL SC SCH (08:44)
--- NOTE | 2016-11-15 10:38 | CONS ---
Date/Time of Note Date/Time of Note DATE: 11/15/16 TIME: 10:29 Consultation Date/Type/Reason Admit Date/Time November 15, 2016 Hospital consult note Reason for Consultation Laboratory Tests Test 11/14/16 12:33 11/14/16 14:41 11/14/16 17:32 11/14/16 21:16 Bedside Glucose 177mg/dL 210mg/dL 228mg/dL 269mg/dL Test 11/15/16 08:33 11/15/16 09:21 Bedside Glucose 138mg/dL 131mg/dL Current Medications Medications (Trade) Dose Ordered Sig/Guille Route PRN Reason Start Time Stop Time Status Last Admin Dose Admin Lactated Ringer's 1,000 ml @ 125 mls/hr Q8H IV* 11/11/16 21:00 11/12/16 04:19 DC 11/11/16 22:08 125 MLS/HR Lactated Ringer's 1,000 ml @ 1,000 mls/hr Q1H ONCE IV 11/11/16 21:00 11/11/16 21:59 DC 11/11/16 22:07 1,000 MLS/HR Lactated Ringer's 1,000 ml @ 75 mls/hr [id number] IV 11/11/16 22:15 11/13/16 07:47 DC 11/12/16 20:30 75 MLS/HR Magnesium Sulfate 100 ml @ 200 mls/hr ONCE ONCE IV 11/11/16 22:30 11/11/16 22:59 DC 11/11/16 22:49 200 MLS/HR Magnesium Sulfate (Magnesium Sulfate 20 Gm/500 ml) 500 ml @ 50 mls/hr Q10H IV 11/11/16 22:15 11/13/16 07:47 DC 11/13/16 04:09 50 MLS/HR Prenat Multivit/ [place]/Iron/Folic Ac ( S) 1 tab DAILY PO 11/12/16 09:00 11/14/16 08:58 1 TAB Metformin HCl (Glucophage) 500 mg WITH BREAKFAST PO 11/12/16 07:35 11/12/16 19:03 DC 11/12/16 08:26 500 MG Metformin HCl (Glucophage) 500 mg WITH LUNCH PO 11/12/16 11:30 11/12/16 19:03 DC 11/12/16 12:44 500 MG Insulin Human NPH (Humulin N) 20 unit ONCE ONCE SC 11/11/16 22:30 11/11/16 22:33 DC 11/11/16 23:38 20 UNIT Betamethasone Acet/Betameth SodPhos (Celestone Soluspan) 12 mg Q24H IM 11/12/16 00:00 11/13/16 00:01 DC 11/13/16 00:07 12 MG Acetaminophen (Tylenol Tab) 650 mg Q4H PRN PO PAIN AND OR ELEVATED TEMP 11/12/16 00:00 Diagnostic Test (Pha) (Accu-Chek) 1 ea FBSPP XX 11/12/16 07:30 11/12/16 10:40 DC 11/12/16 10:18 1 EA Insulin Human NPH (Humulin N) 20 unit HS SC 11/12/16 21:00 11/12/16 21:00 DC Aspirin (Aspirin) 81 mg DAILY@20 PO 11/12/16 20:00 11/14/16 20:22 81 MG Miscellaneous Information 1 ea NOTE XX 11/12/16 09:30 Glucose (Glutose) 15 gm Q15M PRN PO DECREASED GLUCOSE 11/12/16 09:30 Glucose (Glutose) 22.5 gm Q15M PRN PO DECREASED GLUCOSE 11/12/16 09:30 Dextrose (D50w Syringe) 25 ml Q15M PRN IV DECREASED GLUCOSE 11/12/16 09:30 Dextrose (D50w Syringe) 50 ml Q15M PRN IV DECREASED GLUCOSE 11/12/16 09:30 Glucagon (Glucagen) 1 mg Q15M PRN IM DECREASED GLUCOSE 11/12/16 09:30 Glucose (Glutose) 15 gm Q15M PRN BUCCAL DECREASED GLUCOSE 11/12/16 09:30 Insulin Aspart (Novolog Insulin Pen) 2 HOURS AFTER MEALS SC 11/12/16 11:00 11/12/16 18:52 DC 11/12/16 14:50 20 UNIT Diagnostic Test (Pha) (Accu-Chek) 1 ea FBSPP XX 11/12/16 14:00 11/12/16 18:57 DC 11/12/16 14:49 1 EA Miscellaneous Information (* Miscellaneous Pharmacy Order) 1 ea OB HYPOGLYCEMIA ONCE XX 11/12/16 11:00 11/12/16 11:01 DC Miscellaneous Information (* Miscellaneous Pharmacy Order) 1 ea ONCE ONCE XX 11/12/16 11:00 11/12/16 11:01 DC Diagnostic Test (Pha) (Accu-Chek) 1 ea AC MEALS AND BEDTIME XX 11/12/16 21:00 11/14/16 21:20 1 EA Insulin Aspart (Novolog Insulin Pen) Sliding scale insulin... AC MEALS PRN SC Elevated blood glucose 11/12/16 18:30 11/14/16 12:49 DC Diagnostic Test (Pha) (Accu-Chek) 1 ea FBSPP XX 11/12/16 20:05 11/12/16 20:05 DC Insulin Aspart (Novolog Insulin Pen) Check Blood gluc... Q4 SC 11/12/16 21:00 Future Hold 11/13/16 17:45 10 UNIT Insulin Human NPH (Novolin-N) 28 units AC BREAKFAST SC 11/13/16 07:30 11/13/16 07:30 DC Insulin Human NPH (Novolin-N) 20 units HS SC 11/12/16 21:00 11/12/16 21:00 DC Insulin Aspart (Novolog Insulin Pen) 14 unit WITH BREAKFAST SC 11/13/16 08:00 11/15/16 08:42 14 UNIT Insulin Aspart (Novolog Insulin Pen) 12 unit WITH DINNER SC 11/13/16 18:05 11/14/16 17:44 12 UNIT Miscellaneous Information (* Miscellaneous Pharmacy Order) 1 ea OB HYPOGLYCEMIA ONCE XX 11/12/16 18:30 11/12/16 19:04 DC Miscellaneous Information (* Miscellaneous Pharmacy Order) 1 ea ONCE ONCE XX 11/12/16 18:30 11/12/16 19:03 DC Diagnostic Test (Pha) (Accu-Chek) 1 ea FBSPP XX 11/12/16 20:05 11/12/16 20:35 DC Miscellaneous Information (* Miscellaneous Pharmacy Order) 1 ea OB HYPOGLYCEMIA ONCE XX 11/12/16 18:30 11/12/16 19:03 DC Miscellaneous Information (* Miscellaneous Pharmacy Order) 1 ea ONCE ONCE XX 11/12/16 18:30 11/12/16 19:01 DC Miscellaneous Information (* Miscellaneous Pharmacy Order) Discontinue ALL previ... ONCE ONCE XX 11/12/16 18:43 11/12/16 19:01 DC Insulin Human NPH (Humulin N) 20 unit HS SC 11/12/16 21:00 11/14/16 21:18 20 UNIT Insulin Human NPH (Humulin N) 28 unit AC BREAKFAST SC 11/13/16 07:30 11/15/16 08:44 28 UNIT Docusate Sodium (Colace) 100 mg ONCE ONCE PO 11/13/16 12:00 11/13/16 12:01 DC 11/13/16 12:13 100 MG Insulin Aspart (Novolog Insulin Pen) Sliding scale insulin... AC MEALS SC 11/14/16 13:00 11/14/16 17:49 10 UNIT Who had told her 3 previous delivery by section due to diabetes mellitus which she was having since her teenage years with estimated date of confinement of January 03, 2017 which makes her now 33 weeks and 3 days now. She came to triage with blood glucose of 300 and was admitted in the hospital. She was placed on insulin ,and Mag sulfate to stop the contractions . She was given 2 doses of beta Methasone on and 13 of November. On examination she is a lady in no acute distress her abdomen is soft does not have any contractions at this time. heart tone is normal,with good variability and occasional acceleration, no deceleration. Constitutional: No chills, No diaphoresis, No disoriented, No febrile, No improved, No no complaints, No other, No poor po, No requiring IVF, No requiring O2 Eyes: No discharge, No no complaints, No other, No pain, No redness, No visual change ENT: No bleeding, No congestion, No discharge, No dysphagia, No no complaints, No other, No pain, No sore throat Respiratory: No cough, No no complaints, No other, No pain, No pleuritic pain, No shortness of breath, No sputum, No wheezing Cardiovascular: No chest pain, No edema, No lightheadedness, No no complaints, No orthopenea, No other, No palpitations, No paroxysmal nocturnal dyspnea Gastrointestinal: No blood, No constipation, No decreased appetite, No diarrhea , No flatus, No nausea, No no complaints, No other, No pain, No passing stool, No vomiting Genitourinary: No bleeding, No discharge, No dysuria, No flank pain, No hematuria, No no complaints, No other Musculoskeletal: No back pain, No bone/joint pain, No neck pain, No no complaints, No other, No restricted range of motion, No swelling Skin: No bruising, No erythema, No laceration, No no complaints, No other, No pruritis, No rash, No skin lesions Neurologic: other (Normal deep tendon reflex) Endocrine: other (She is close to diabetes.), No dry skin, No no complaints, No polydypsia, No polyuria, No temp intolerance Lymphatic: No adenopathy, No lymphadema, No no complaints, No other, No tender nodes Psychological: No anxiety, No confusion, No depression, No nl mood/affect, No no complaints, No other, No suicidal Immunologic: No immunodeficiency, No no complaints, No other, No pruritis, No rhinitis, No urticaria Additional Comments Today her insulin regimen was changed by the family life educator . Dr. Light will see her soon today Past Medical History Medical History: diabetes Social History Alcohol Use: none Smoking Status: Never smoker Drug Use: none Exam/Review of Systems Vital Signs Vitals Vital Signs Date Time Temp Pulse Resp B/P Pulse Ox O2 Delivery O2 Flow Rate FiO2 11/11/16 20:29 98.2 85 18 141/88 Room Air Results Result Diagram: 11/12/16 0602 11/12/16 0602 Results 24 hrs Laboratory Tests Test 11/14/16 12:33 11/14/16 14:41 11/14/16 17:32 11/14/16 21:16 Bedside Glucose 177 210 228 H 269 H Test 11/15/16 08:33 11/15/16 09:21 Bedside Glucose 138 131 Medications Medications Current Medications 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 ( S) 1 tab DAILY PO Last administered on 11/14/16 08:58; Admin Dose 1 TAB; Start 11/12/16 at 09:00 Acetaminophen (Tylenol Tab) 650 mg Q4H PRN PO PAIN AND OR ELEVATED TEMP; Start 11/12/16 at 00:00 Aspirin (Aspirin) 81 mg DAILY@20 PO Last administered on 11/14/16 20:22; Admin Dose 81 MG; Start 11/12/16 at 20:00 Miscellaneous Information 1 ea NOTE XX ; Start 11/12/16 at 09:30 Glucose (Glutose) 15 gm Q15M PRN PO DECREASED GLUCOSE; Start 11/12/16 at 09:30 Glucose (Glutose) 22.5 gm Q15M PRN PO DECREASED GLUCOSE; Start 11/12/16 at 09: 30 Dextrose (D50w Syringe) 25 ml Q15M PRN IV DECREASED GLUCOSE; Start 11/12/16 at 09:30 Dextrose (D50w Syringe) 50 ml Q15M PRN IV DECREASED GLUCOSE; Start 11/12/16 at 09:30 Glucagon (Glucagen) 1 mg Q15M PRN IM DECREASED GLUCOSE; Start 11/12/16 at 09:30 Glucose (Glutose) 15 gm Q15M PRN BUCCAL DECREASED GLUCOSE; Start 11/12/16 at 09 :30 Insulin Aspart (Novolog Insulin Pen) Check Blood gluc... Q4 SC Last administered on 11/13/16 17:45; Admin Dose 10 UNIT; Start 11/12/16 at 21:00; Status Future Hold Insulin Human NPH (Humulin N) 20 unit HS SC Last administered on 11/14/16 21: 18; Admin Dose 20 UNIT; Start 11/12/16 at 21:00 CASANDRA TALAMANTES MD November 15, 2016 10:38
[2016-11-15] MEDS: MULTIVIT/MIN/FOLATE/IRON/PREN TAB PO SCH (11:28)
[2016-11-15] MEDS: ACETAMINOPHEN 325 MG TAB PO PRN (17:55)
[2016-11-15] MEDS ORDERED: INSULIN ASPART [NOVOLOG] 3 ML PEN SC SCH (18:05)
[2016-11-15] MEDS: ASPIRIN 81 MG TAB PO SCH (20:04)
[2016-11-15] MEDS ORDERED: NPH, HUMAN INSULIN ISOPHANE 3ML VIAL SC SCH (21:00)
[2016-11-16] MEDS: ACCU-CHEK XX SCH ×8 (08:45→21:05)
[2016-11-16] MEDS: INSULIN ASPART [NOVOLOG] 3 ML PEN SC SCH ×3 (08:50→17:38)
[2016-11-16] MEDS: NPH, HUMAN INSULIN ISOPHANE 3ML VIAL SC SCH ×2 (08:53→21:08)
[2016-11-16] MEDS ORDERED: AMPICILLIN 2 GM/NS (PMX) 100 ML IVPB ONE (11:00)
[2016-11-16] MEDS ORDERED: LACTATED RINGER'S 1,000 ML IV SCH (11:00)
[2016-11-16] MEDS: MULTIVIT/MIN/FOLATE/IRON/PREN TAB PO SCH (11:14)
[2016-11-16] MEDS: CEPHALEXIN 500 MG CAP PO SCH ×2 (11:51→17:39)
--- NOTE | 2016-11-16 16:22 | PN ---
Date/Time of Note Date/Time of Note DATE: 11/16/16 TIME: 16:12 OB Subjective Subjective Subjective Patient denies feeling any cramps or contraction. She denies any headache, blurred vision, epigastric pain. Denies any leaking of fluid or vaginal bleeding or decreased movement. OB Objective Objective Objective Const: GA, A&O, NAD Head: [Atraumatic] Eyes: [Normal Conjunctiva] ENT: [Normal External Ears, Nose and Mouth.] Neck: [Full range of motion. No meningismus.] Abd: [Soft, non tender, non distended. Normal bowel sounds], gravid, fundal height consistent with gestational age. NST: Category 1 Occasional rare contractions on the monitor. Blood pressures reviewed they are mainly in the range of 120-140s over 80s-90s Skin: [No petechiae or rashes] Back: [No midline or flank tenderness] Ext: [No cyanosis, or edema] Neuro: [Awake and alert] Psych: [Normal Mood and Affect] Chemistry Test 11/13/16 17:25 11/13/16 21:08 11/14/16 08:34 11/14/16 12:33 Bedside Glucose 238mg/dL (70-220) H 256mg/dL (70-220) H 194mg/dL (70-220) 177mg/dL (70-220) Test 11/14/16 14:41 11/14/16 17:32 11/14/16 21:16 11/15/16 08:33 Bedside Glucose 210mg/dL (70-220) 228mg/dL (70-220) H 269mg/dL (70-220) H 138mg/dL (70-220) Test 11/15/16 09:21 11/15/16 10:40 11/15/16 12:57 11/15/16 15:05 Bedside Glucose 131mg/dL (70-220) 138mg/dL (70-220) 95mg/dL (70-220) 115mg/dL (70-220) Test 11/15/16 17:19 11/15/16 19:19 11/15/16 21:04 11/16/16 08:46 Bedside Glucose 103mg/dL (70-220) 158mg/dL (70-220) 176mg/dL (70-220) 100mg/dL (70-220) Test 11/16/16 11:02 11/16/16 12:49 11/16/16 14:48 Bedside Glucose 83mg/dL (70-220) 121mg/dL (70-220) 150mg/dL (70-220) OB Assessment/Plan Other Assessment: Hospital day number $4 Admitted for contractions, suspected labor Patient started on steroid. Received 2 doses, and received magnesium for tocolysis. Currently off of magnesium. She currently does not show any evidence of labor History of section x 3. Delivered at 37, 36 and 35. Last delivery at 35 weeks Currently no evidence of labor Pre-gestational diabetes, Class B ( diabetic since age 21). Poorly controlled during current . Hemoglobin A1c was elevated and reported to be 10.4 on admission AC increased in ultrasound consistent with diabetic Fetopathy. Started on insulin while in the hospital. Blood sugars now much better control. Gestational hypertension with proteinuria. Asymptomatic. No symptoms of severe preeclampsia. Blood pressures in mild to moderate range. At this point does not require medication. Patient has been started on baby aspirin for preeclampsia prophylaxis Proteinuria could be related to alf diabetes. Signs and symptoms of preeclampsia discussed with the patient. Patient is aware Compliance with taking medication and insulin and monitoring blood sugar closely discussed with the patient. Increased risk of complication of with poorly controlled diabetes including risk of IUFD, macrosomia, discussed with the patient. Patient desires to comply History of 3. Currently no evidence of labor History of delivery 2. Status post steroid Contractions on admission could be related to UTI. will start treatment. Urine culture positive for GBS Follow-up by perinatology in-house Recommended repeat ultrasound in 2 weeks for growth. Continue same management. If any evidence of severe preeclampsia consider delivery, otherwise plan to deliver between 37 6/7 - 38 week if does not show any evidence of labor PALMER AUGUSTE MD November 16, 2016 16:22
--- NOTE | 2016-11-16 16:52 | CONS ---
DATE OF ADMISSION: 11/11/2016 DATE OF CONSULTATION: 11/16/2016 REFERRING PHYSICIAN: PRINCESS DIAZ MD. HISTORY OF PRESENT ILLNESS: I was asked to talk with his mother who is in labor at 33.1 wee ks. Mother's history is as follows: She is a 5, para 3, term 1, AB 1 and living 3. Ultras ound on 11/12/2016 showed estimated weight of 2507 grams. EDC 01/03/2017. Mother's blood typ e is B positive, RPR nonreactive, HBsAg negative, HIV nonreactive and GBS positive. Mother also has -induced hypertension and diabetes and history of deliveries before. Mother state d that the last Baby was born at 35 weeks. She has poorly controlled diabetes and also polyhydramni os. She had a perinatology consultation, 11/12/2016. She received betamethasone on 11/12/2016 as w ell as 11/13/2016 and was started on magnesium sulfate on 11/11/2016 and discontinued on 11/13/2016. Antibiotics were started on 11/16/2016. I talked with mother about the fetus being 33.1 weeks with the possibility of respiratory distress i ncluding retained lung fluid requiring blow-by oxygen, high-flow nasal cannula and CPAP. If the inf ant does have respiratory distress and requires oxygen for greater than 40%, may need Curosur f administration. I discussed about the risks and benefits of treatment. I also discussed about lo w risk of apnea of prematurity and treatment. Mother is GBS positive. Therefore, is at risk for infection, discussed about obtaining the lab testing including CBC and blood culture and starti ng the on antibiotics if clinically indicated. I also discussed about risk for hyperbilirubi nemia, electrolyte imbalance and feedings to be started when the infant is stable. Discussed about the initial tube feedings followed by bottle feedings as the infant shows readiness. Discussed abou t the benefits of breast milk but however, mother is not enthusiastic. Encouraged her to pump breas t milk after delivery. Discussed about good prognosis, including survival of greater than 95% to 98% and also the length of hospitalization of 2 to 3 weeks. All mother's questions were answered. I also discussed about the possibility of monitoring for congenital anomalies as there is polyhydramnios and macrosomia. As m other had no further questions, the discussion was concluded. Dictated By: EMILIANA BURKS/JULIO Conf#: [id number] DID#: [id number]
[2016-11-16] MEDS: ACETAMINOPHEN 325 MG TAB PO PRN (17:39)
[2016-11-16] MEDS: ASPIRIN 81 MG TAB PO SCH (20:05)
--- NOTE | 2016-11-16 20:38 | RADRPT ---
Vent Rate: 77 bpm RR Interval: 0 msec WI Interval: 162 msec QRS Duration: 78 msec QT Interval: 346 msec QTC Interval: 391 msec P-R-T [place]: 34 - 28 - 48 degrees Normal sinus rhythm Normal ECG Electronically Signed By: Santana Harris [id number]
[2016-11-17] MEDS: CEPHALEXIN 500 MG CAP PO SCH ×5 (00:07→23:36)
[2016-11-17] MEDS: ACCU-CHEK XX SCH ×8 (08:00→20:30)
[2016-11-17] MEDS: INSULIN ASPART [NOVOLOG] 3 ML PEN SC SCH ×6 (08:50→22:45)
[2016-11-17] MEDS: NPH, HUMAN INSULIN ISOPHANE 3ML VIAL SC SCH ×2 (09:02→20:45)
[2016-11-17] MEDS: MULTIVIT/MIN/FOLATE/IRON/PREN TAB PO SCH (09:08)
--- NOTE | 2016-11-17 11:43 | CONS ---
Date/Time of Note Date/Time of Note DATE: 11/17/16 TIME: 11:36 Consultation Date/Type/Reason Admit Date/Time November 17, 2069 Hospital [employer] follow-up visit Initial Consult Date This patient is a 31 years old 5 para 3 1 with estimated date of confinement of January 03, 2017 which makes her 33 weeks and 2 days today This patient was admitted in the hospital about 6 weeks ago with blood glucose of 300 mg, elevated blood pressure, history of 20 section She was placed on insulin, magnesium sulfate was given, as well as antibiotic She is gradually improving Laboratory Tests Test 11/16/16 12:49 11/16/16 14:48 11/16/16 17:20 11/16/16 17:32 Bedside Glucose 121mg/dL 150mg/dL 123mg/dL Hepatitis B Surface Antigen NEGATIVE Hepatitis B Core Total Antibody NEGATIVE Test 11/16/16 19:51 11/16/16 21:03 11/17/16 08:07 Bedside Glucose 111mg/dL 103mg/dL 77mg/dL Current Medications Medications (Trade) Dose Ordered Sig/Guille Route PRN Reason Start Time Stop Time Status Last Admin Dose Admin Lactated Ringer's 1,000 ml @ 125 mls/hr Q8H IV* 11/11/16 21:00 11/12/16 04:19 DC 11/11/16 22:08 125 MLS/HR Lactated Ringer's 1,000 ml @ 1,000 mls/hr Q1H ONCE IV 11/11/16 21:00 11/11/16 21:59 DC 11/11/16 22:07 1,000 MLS/HR Lactated Ringer's 1,000 ml @ 75 mls/hr [id number] IV 11/11/16 22:15 11/13/16 07:47 DC 11/12/16 20:30 75 MLS/HR Magnesium Sulfate 100 ml @ 200 mls/hr ONCE ONCE IV 11/11/16 22:30 11/11/16 22:59 DC 11/11/16 22:49 200 MLS/HR Magnesium Sulfate (Magnesium Sulfate 20 Gm/500 ml) 500 ml @ 50 mls/hr Q10H IV 11/11/16 22:15 11/13/16 07:47 DC 11/13/16 04:09 50 MLS/HR Prenat Multivit/ [place]/Iron/Folic Ac ( S) 1 tab DAILY PO 11/12/16 09:00 11/17/16 09:08 1 TAB Metformin HCl (Glucophage) 500 mg WITH BREAKFAST PO 11/12/16 07:35 11/12/16 19:03 DC 11/12/16 08:26 500 MG Metformin HCl (Glucophage) 500 mg WITH LUNCH PO 11/12/16 11:30 11/12/16 19:03 DC 11/12/16 12:44 500 MG Insulin Human NPH (Humulin N) 20 unit ONCE ONCE SC 11/11/16 22:30 11/11/16 22:33 DC 11/11/16 23:38 20 UNIT Betamethasone Acet/Betameth SodPhos ([place]elestone Soluspan) 12 mg Q24H IM 11/12/16 00:00 11/13/16 00:01 DC 11/13/16 00:07 12 MG Acetaminophen (Tylenol Tab) 650 mg Q4H PRN PO PAIN AND OR ELEVATED TEMP 11/12/16 00:00 11/16/16 17:39 650 MG Diagnostic Test (Pha) (Accu-Chek) 1 ea FBSPP XX 11/12/16 07:30 11/12/16 10:40 DC 11/12/16 10:18 1 EA Insulin Human NPH (Humulin N) 20 unit HS SC 11/12/16 21:00 11/12/16 21:00 DC Aspirin (Aspirin) 81 mg DAILY@20 PO 11/12/16 20:00 11/16/16 20:05 81 MG Miscellaneous Information 1 ea NOTE XX 11/12/16 09:30 Glucose (Glutose) 15 gm Q15M PRN PO DECREASED GLUCOSE 11/12/16 09:30 Glucose (Glutose) 22.5 gm Q15M PRN PO DECREASED GLUCOSE 11/12/16 09:30 Dextrose (D50w Syringe) 25 ml Q15M PRN IV DECREASED GLUCOSE 11/12/16 09:30 Dextrose (D50w Syringe) 50 ml Q15M PRN IV DECREASED GLUCOSE 11/12/16 09:30 Glucagon (Glucagen) 1 mg Q15M PRN IM DECREASED GLUCOSE 11/12/16 09:30 Glucose (Glutose) 15 gm Q15M PRN BUCCAL DECREASED GLUCOSE 11/12/16 09:30 Insulin Aspart (Novolog Insulin Pen) 2 HOURS AFTER MEALS SC 11/12/16 11:00 11/12/16 18:52 DC 11/12/16 14:50 20 UNIT Diagnostic Test (Pha) (Accu-Chek) 1 ea FBSPP XX 11/12/16 14:00 11/12/16 18:57 DC 11/12/16 14:49 1 EA Miscellaneous Information (* Miscellaneous Pharmacy Order) 1 ea OB HYPOGLYCEMIA ONCE XX 11/12/16 11:00 11/12/16 11:01 DC Miscellaneous Information (* Miscellaneous Pharmacy Order) 1 ea ONCE ONCE XX 11/12/16 11:00 11/12/16 11:01 DC Diagnostic Test (Pha) (Accu-Chek) 1 ea AC MEALS AND BEDTIME XX 11/12/16 21:00 11/17/16 08:00 1 EA Insulin Aspart (Novolog Insulin Pen) Sliding scale insulin... AC MEALS PRN SC Elevated blood glucose 11/12/16 18:30 11/14/16 12:49 DC Diagnostic Test (Pha) (Accu-Chek) 1 ea FBSPP XX 11/12/16 20:05 11/12/16 20:05 DC Insulin Aspart (Novolog Insulin Pen) Check Blood gluc... Q4 SC 11/12/16 21:00 Future Hold 11/13/16 17:45 10 UNIT Insulin Human NPH (Novolin-N) 28 units AC BREAKFAST SC 11/13/16 07:30 11/13/16 07:30 DC Insulin Human NPH (Novolin-N) 20 units HS SC 11/12/16 21:00 11/12/16 21:00 DC Insulin Aspart (Novolog Insulin Pen) 14 unit WITH BREAKFAST SC 11/13/16 08:00 11/15/16 15:39 DC 11/15/16 08:42 14 UNIT Insulin Aspart (Novolog Insulin Pen) 12 unit WITH DINNER SC 11/13/16 18:05 11/15/16 15:39 DC 11/14/16 17:44 12 UNIT Miscellaneous Information (* Miscellaneous Pharmacy Order) 1 ea OB HYPOGLYCEMIA ONCE XX 11/12/16 18:30 11/12/16 19:04 DC Miscellaneous Information (* Miscellaneous Pharmacy Order) 1 ea ONCE ONCE XX 11/12/16 18:30 11/12/16 19:03 DC Diagnostic Test (Pha) (Accu-Chek) 1 ea FBSPP XX 11/12/16 20:05 11/12/16 20:35 DC Miscellaneous Information (* Miscellaneous Pharmacy Order) 1 ea OB HYPOGLYCEMIA ONCE XX 11/12/16 18:30 11/12/16 19:03 DC Miscellaneous Information (* Miscellaneous Pharmacy Order) 1 ea ONCE ONCE XX 11/12/16 18:30 11/12/16 19:01 DC Miscellaneous Information (* Miscellaneous Pharmacy Order) Discontinue ALL previ... ONCE ONCE XX 11/12/16 18:43 11/12/16 19:01 DC Insulin Human NPH (Humulin N) 20 unit HS SC 11/12/16 21:00 11/15/16 15:39 DC 11/14/16 21:18 20 UNIT Insulin Human NPH (Humulin N) 28 unit AC BREAKFAST SC 11/13/16 07:30 11/15/16 15:39 DC 11/15/16 08:44 28 UNIT Docusate Sodium (Colace) 100 mg ONCE ONCE PO 11/13/16 12:00 11/13/16 12:01 DC 11/13/16 12:13 100 MG Insulin Aspart (Novolog Insulin Pen) Sliding scale insulin... AC MEALS SC 11/14/16 13:00 11/17/16 08:59 12 UNIT Insulin Aspart (Novolog Insulin Pen) 12 unit WITH BREAKFAST SC 11/16/16 08:00 11/16/16 08:50 12 UNIT Insulin Aspart (Novolog Insulin Pen) 10 unit WITH DINNER SC 11/15/16 18:05 11/16/16 14:41 DC 11/15/16 17:24 10 UNIT Insulin Human NPH (Humulin N) 14 unit HS SC 11/15/16 21:00 11/16/16 14:41 DC 11/15/16 21:17 14 UNIT Insulin Human NPH (Humulin N) 20 unit AC BREAKFAST SC 11/16/16 07:30 11/17/16 09:02 20 UNIT Diagnostic Test (Pha) (Accu-Chek) 1 ea FBSPP XX 11/15/16 20:05 11/17/16 08:00 1 EA Miscellaneous Information (* Miscellaneous Pharmacy Order) 1 ea OB HYPOGLYCEMIA ONCE XX 11/15/16 16:00 11/15/16 16:00 DC Miscellaneous Information 1 ea 1 ea ONCE ONCE XX 11/15/16 16:00 11/15/16 16:00 DC Ampicillin (Ampicillin 2 Gm/ NS (Pmx)) 100 ml @ 100 mls/hr ONCE ONCE IVPB 11/16/16 11:00 11/16/16 11:59 DC 11/16/16 11:14 100 MLS/HR Cephalexin 500 mg 500 mg Q6 PO 11/16/16 12:00 11/17/16 06:14 500 MG Lactated Ringer's (Lr) 1,000 ml @ 125 mls/hr Q8H IV 11/16/16 11:00 Future Hold 11/16/16 11:14 125 MLS/HR Insulin Aspart (Novolog Insulin Pen) 12 unit WITH DINNER SC 11/16/16 18:05 11/16/16 17:38 12 UNIT Insulin Human NPH (Humulin N) 16 unit HS SC 11/16/16 21:00 11/16/16 21:08 16 UNIT Today her blood glucose is 77, blood pressure is somewhat elevated ; 135/90, sometimes 150/95, but basically is around 130s over 80s She does not have any contractions. heart tone is normal no evidence of deceleration there is fairly good variability No contractions. Abdomen is soft She has noticed receiving Keflex 500 mg every 6 hours Exam/Review of Systems Vital Signs Vitals Intake and Output 11/16/16 11/16/16 11/17/16 15:00 23:00 07:00 Intake Total 225 ml Balance 225 ml Results Results 24 hrs Laboratory Tests Test 11/16/16 12:49 11/16/16 14:48 11/16/16 17:20 11/16/16 17:32 Bedside Glucose 121 150 123 Hepatitis B Surface Antigen NEGATIVE Hepatitis B Core Total Antibody NEGATIVE Test 11/16/16 19:51 11/16/16 21:03 11/17/16 08:07 Bedside Glucose 111 103 77 Medications Medications Current Medications Prenat Multivit/ [place]/Iron/Folic Ac ( S) 1 tab DAILY PO Last administered on 11/17/16t 09:08; Admin Dose 1 TAB; Start 11/12/16 at 09:00 Acetaminophen (Tylenol Tab) 650 mg Q4H PRN PO PAIN AND OR ELEVATED TEMP Last administered on 11/16/16 17:39; Admin Dose 650 MG; Start 11/12/16 at 00:00 Aspirin (Aspirin) 81 mg DAILY@20 PO Last administered on 11/16/16 20:05; Admin Dose 81 MG; Start 11/12/16 at 20:00 Miscellaneous Information 1 ea NOTE XX ; Start 11/12/16 at 09:30 Glucose (Glutose) 15 gm Q15M PRN PO DECREASED GLUCOSE; Start 11/12/16 at 09:30 Glucose (Glutose) 22.5 gm Q15M PRN PO DECREASED GLUCOSE; Start 11/12/16 at 09: 30 Dextrose (D50w Syringe) 25 ml Q15M PRN IV DECREASED GLUCOSE; Start 11/12/16 at 09:30 Dextrose (D50w Syringe) 50 ml Q15M PRN IV DECREASED GLUCOSE; Start 11/12/16 at 09:30 Glucagon (Glucagen) 1 mg Q15M PRN IM DECREASED GLUCOSE; Start 11/12/16 at 09:30 Glucose (Glutose) 15 gm Q15M PRN BUCCAL DECREASED GLUCOSE; Start 11/12/16 at 09 :30 Insulin Aspart (Novolog Insulin Pen) Check Blood gluc... Q4 SC Last administered on 11/13/16 17:45; Admin Dose 10 UNIT; Start 11/12/16 at 21:00; Status Future Hold Diagnostic Test (Pha) (Accu-Chek) 1 ea FBSPP XX Last administered on 11/17/16 08:00; Admin Dose 1 EA; Start 11/15/16 at 20:05 Cephalexin 500 mg 500 mg Q6 PO Last administered on 11/17/16 06:14; Admin Dose 500 MG; Start 11/16/16 at 12:00 Lactated Ringer's (Lr) 1,000 ml @ 125 mls/hr Q8H IV Last administered on 11:14; Admin Dose 125 MLS/HR; Start 11/16/16 at 11:00; Status Future Hold Insulin Human NPH (Humulin N) 16 unit HS SC Last administered on 11/16/16 21: 08; Admin Dose 16 UNIT; Start 11/16/16 at 21:00 CASANDRA TALAMANTES MD November 17, 2016 11:43
[2016-11-17] MEDS: ASPIRIN 81 MG TAB PO SCH (20:30)
[2016-11-18] MEDS: ACETAMINOPHEN 325 MG TAB PO PRN (04:02)
[2016-11-18] MEDS: CEPHALEXIN 500 MG CAP PO SCH ×4 (05:59→23:36)
[2016-11-18] MEDS: INSULIN ASPART [NOVOLOG] 3 ML PEN SC SCH ×5 (08:00→17:35)
[2016-11-18] MEDS: ACCU-CHEK XX SCH ×8 (08:21→22:00)
[2016-11-18] MEDS: MULTIVIT/MIN/FOLATE/IRON/PREN TAB PO SCH (08:53)
[2016-11-18] MEDS: NPH, HUMAN INSULIN ISOPHANE 3ML VIAL SC SCH ×2 (08:59→21:14)
--- NOTE | 2016-11-18 16:23 | QN ---
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
[2016-11-18] MEDS: ASPIRIN 81 MG TAB PO SCH (20:24)
[2016-11-19] MEDS: CEPHALEXIN 500 MG CAP PO SCH ×4 (05:57→23:57)
[2016-11-19] MEDS: ACCU-CHEK XX SCH ×10 (07:30→21:00)
[2016-11-19] MEDS: INSULIN ASPART [NOVOLOG] 3 ML PEN SC SCH ×5 (07:30→17:35)
--- NOTE | 2016-11-19 08:00 | PN ---
Date/Time of Note Date/Time of Note DATE: 11/19/16 TIME: 07:55 OB Subjective Subjective Subjective Patient is a 33+ weeks of gestation with Pre-gestational diabetes and preeclampsia She is currently on antibiotics for positive GBS in urine culture Patient is currently on insulin for management of diabetes High blood sugar 194 last night 2hrs after meal She reports positive movement, no leaking fluid, no contractions, no vaginal bleeding She denies any headache, blurred vision, epigastric pain OB Objective HEENT: WNL Heart: Rhythm Normal Lungs: Clear, Equal Abdomen: WNL Extremities: Normal Reflexes: Normal Cervical Dilatation: None Heart Rate: 140's Accelerations: Accelerations Present Decelerations: No Decelerations OB Assessment/Plan Reason for admission: other Other Assessment: Pre-gestational diabetes and preeclampsia Status post 2 doses of betamethasone for lung maturity Status post magnesium sulfate Other plan: Continue with insulin We will order ultrasound including growth scan and biophysical profile and JAYCEE today Consider repeat at 38 weeks of gestation or if patient goes into labor earlier than that. RADHA FIGUEROA MD November 19, 2016 08:00
[2016-11-19] MEDS: NPH, HUMAN INSULIN ISOPHANE 3ML VIAL SC SCH ×2 (09:15→21:13)
--- NOTE | 2016-11-19 09:20 | RADRPT ---
PROCEDURE: OB ultrasound for biophysical profile CLINICAL INDICATION: Gestational diabetes TECHNIQUE: Multiple sonographic images of the pelvis were obtained. Transabdominal views of the g ravid uterus are available for review. The images were reviewed on a PACS workstation. COMPARISON: None FINDINGS: breathing movement = 2/2 tone = 2/2 motion = 2/2 JAYCEE = 2/2 JAYCEE = 19.6 cm Single live intrauterine with cardiac activity of 139 bpm. position is breech . The placenta is fundal. Partially imaged is a cystic structure adjacent to the bladder. IMPRESSION: 1. Single live intrauterine gestation. 2. Biophysical profile = 02/07. 3. JAYCEE = 19.6 cm. 4. Breech presentation. 5. Cystic structure seen adjacent to the bladder. Consider a anatomy scan for further evalua tion. RPTAT: HH .Toshia Escobedo MD, Date Time Electronically viewed and signed by .Toshia Escobedo MD, on 11/19/2016 09:20 .G/
--- NOTE | 2016-11-19 09:22 | RADRPT ---
PROCEDURE: US OB. CLINICAL INDICATION: Size and dates TECHNIQUE: Multiple sonographic images of the pelvis were obtained. Transabdominal imaging only w as performed. The images were reviewed on a PACS workstation. COMPARISON: No prior studies are available for comparison. FINDINGS: There is a single live intrauterine gestation. Cardiac activity is present with 157 beats per minut e. position is breech. Measurements were made in order to determine age. The results are as follows: BPD = 8.00 cm HC = 29.23 cm AC = 34.27 cm FL = 6.23 cm. Estimated gestational age of approximately 33 weeks 5 days. The estimated date of delivery is 01/02/2017. The EFW = 2671 g, 91 %ile. The placenta is fundal. There is no evidence for an abruption or placenta previa. There are no adnexal masses. IMPRESSION: 1. Single live intrauterine gestation of approximately 33 weeks 5 days, by ultrasound criteria. 2. The estimated date of delivery is 01/02/2017. 3. The estimated weight is 26 71 g, 91 %ile. 4. Breech presentation RPTAT: HH .Toshia Escobedo MD, Date Time Electronically viewed and signed by .Toshia Escobedo MD, on 11/19/2016 09:22 .G/
[2016-11-19] MEDS: MULTIVIT/MIN/FOLATE/IRON/PREN TAB PO SCH (09:28)
[2016-11-19] MEDS: ASPIRIN 81 MG TAB PO SCH (21:06)
[2016-11-20] MEDS: CEPHALEXIN 500 MG CAP PO SCH ×3 (05:57→18:05)
[2016-11-20] MEDS: INSULIN ASPART [NOVOLOG] 3 ML PEN SC SCH ×5 (07:30→18:07)
[2016-11-20] MEDS: ACCU-CHEK XX SCH ×8 (08:38→21:21)
[2016-11-20] MEDS: MULTIVIT/MIN/FOLATE/IRON/PREN TAB PO SCH (08:50)
[2016-11-20] MEDS: NPH, HUMAN INSULIN ISOPHANE 3ML VIAL SC SCH ×2 (08:55→21:20)
--- NOTE | 2016-11-20 16:22 | QN ---
Documentation Comment iup 33.5 PIH vss exam wnl nst reactive a.p iup 33.5 pih stable type II DM stable continue in house care NIESHA DUNLAP MD November 20, 2016 16:22
[2016-11-20] MEDS: ASPIRIN 81 MG TAB PO SCH (20:51)
[2016-11-21] MEDS: CEPHALEXIN 500 MG CAP PO SCH ×4 (00:10→18:13)
[2016-11-21] MEDS: ACCU-CHEK XX SCH ×8 (07:30→21:21)
--- NOTE | 2016-11-21 08:19 | PN ---
Date/Time of Note Date/Time of Note DATE: 11/21/16 TIME: 08:16 OB Subjective Subjective Subjective Patient is a 33+6/7 weeks of gestation with Pre-gestational diabetes and PIH She is currently on antibiotics for positive GBS in urine culture Patient is currently on insulin for management of diabetes Fasting Blood Sugar 150 this am She reports positive movement, no leaking fluid, no contractions, no vaginal bleeding She denies any headache, blurred vision, epigastric pain OB Objective Objective Objective PROCEDURE: US OB. CLINICAL INDICATION: Size and dates TECHNIQUE: Multiple sonographic images of the pelvis were obtained. Transabdominal imaging only was performed. The images were reviewed on a PACS workstation. COMPARISON: No prior studies are available for comparison. FINDINGS: There is a single live intrauterine gestation. Cardiac activity is present with 157 beats per minute. position is breech. Measurements were made in order to determine age. The results are as follows: BPD = 8.00 cm HC = 29.23 cm AC = 34.27 cm FL = 6.23 cm. Estimated gestational age of approximately 33 weeks 5 days. The estimated date of delivery is 01/02/2017. The EFW = 2671 g, 91 %ile. The placenta is fundal. There is no evidence for an abruption or placenta previa. There are no adnexal masses. IMPRESSION: 1. Single live intrauterine gestation of approximately 33 weeks 5 days, by ultrasound criteria. 2. The estimated date of delivery is 01/02/2017. 3. The estimated weight is 26 71 g, 91 %ile. 4. Breech presentation RPTAT: HH .Toshia Escobedo MD, Date Time Electronically viewed and signed by .Toshia Escobedo MD, on 11/19/2016 09 :22 .G/ CC: RADHA FIGUEROA MD PROCEDURE: OB ultrasound for biophysical profile CLINICAL INDICATION: Gestational diabetes TECHNIQUE: Multiple sonographic images of the pelvis were obtained. Transabdominal views of the gravid uterus are available for review. The images were reviewed on a PACS workstation. COMPARISON: None FINDINGS: breathing movement = 2/2 tone = 2/2 motion = 2/2 JAYCEE = 2/2 JAYCEE = 19.6 cm Single live intrauterine with cardiac activity of 139 bpm. position is breech. The placenta is fundal. Partially imaged is a cystic structure adjacent to the bladder. IMPRESSION: 1. Single live intrauterine gestation. 2. Biophysical profile = 8/8. 3. JAYCEE = 19.6 cm. 4. Breech presentation. 5. Cystic structure seen adjacent to the bladder. Consider a anatomy scan for further evaluation. RPTAT: HH .Toshia Escobedo MD, MD Date Time Electronically viewed and signed by .Toshia Escobedo MD, on 11/19/2016 09 :20 .G/ CC: RADHA FIGUEROA MD HEENT: WNL Heart: Rhythm Normal Lungs: Clear, Equal Abdomen: WNL Extremities: Normal Reflexes: Normal Cervical Dilatation: None Membranes: Intact Heart Rate: 140's Accelerations: Accelerations Present Decelerations: No Decelerations OB Assessment/Plan Other Assessment: Pre-gestational diabetes and PIH Status post 2 doses of betamethasone for lung maturity Status post magnesium sulfate Patient with Elevated fasting blood sugar Other plan: Consider adjusting the PM NPH dose Continue with present management RADHA FIGUEROA MD November 21, 2016 08:19
[2016-11-21] MEDS: INSULIN ASPART [NOVOLOG] 3 ML PEN SC SCH ×7 (09:00→20:15)
[2016-11-21] MEDS: NPH, HUMAN INSULIN ISOPHANE 3ML VIAL SC SCH (09:09)
[2016-11-21] MEDS: MULTIVIT/MIN/FOLATE/IRON/PREN TAB PO SCH (09:15)
[2016-11-21] MEDS ORDERED: INSULIN ASPART [NOVOLOG] 3 ML PEN SC ONE (14:00)
[2016-11-21] MEDS: ASPIRIN 81 MG TAB PO SCH (20:17)
[2016-11-21] MEDS ORDERED: NPH, HUMAN INSULIN ISOPHANE 3ML VIAL SC SCH (21:00)
[2016-11-22] MEDS: CEPHALEXIN 500 MG CAP PO SCH ×3 (00:01→11:55)
[2016-11-22] MEDS ORDERED: NPH, HUMAN INSULIN ISOPHANE 3ML VIAL SC SCH (07:30)
[2016-11-22] MEDS: ACCU-CHEK XX SCH ×4 (07:54→11:30)
[2016-11-22] MEDS ORDERED: INSULIN ASPART [NOVOLOG] 3 ML PEN SC SCH ×2 (08:00)
[2016-11-22] MEDS: MULTIVIT/MIN/FOLATE/IRON/PREN TAB PO SCH (09:07)
--- NOTE | 2016-11-22 09:56 | PN ---
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 This patient was admitted in the hospital about on November 11, 2016 with blood glucose of 300 mg, elevated blood pressure,. She history of 2 section in the past. Today she is doing fairly well. Her blood sugar today is 89. She is receiving insulin 4 times a day. Her last estimated weight on November 11 was 2507 g, and it will be repeated next week Today to heart tracing is okay. She has no contractions Laboratory Tests Test 11/21/16 11:15 11/21/16 13:15 11/21/16 14:46 11/21/16 18:02 Bedside Glucose 177mg/dL 83mg/dL 172mg/dL 105mg/dL Test 11/21/16 20:02 11/21/16 21:21 11/22/16 07:52 Bedside Glucose 198mg/dL 196mg/dL 89mg/dL Current Medications Medications (Trade) Dose Ordered Sig/Guille Route PRN Reason Start Time Stop Time Status Last Admin Dose Admin Lactated Ringer's 1,000 ml @ 125 mls/hr Q8H IV* 11/11/16 21:00 11/12/16 04:19 DC 11/11/16 22:08 Lactated Ringer's 1,000 ml @ 1,000 mls/hr Q1H ONCE IV 11/11/16 21:00 11/11/16 21:59 DC 11/11/16 22:07 Lactated Ringer's 1,000 ml @ 75 mls/hr [id number] IV 11/11/16 22:15 11/13/16 07:47 DC 11/12/16 20:30 Magnesium Sulfate 100 ml @ 200 mls/hr ONCE ONCE IV 11/11/16 22:30 11/11/16 22:59 DC 11/11/16 22:49 Magnesium Sulfate (Magnesium Sulfate 20 Gm/500 ml) 500 ml @ 50 mls/hr Q10H IV 11/11/16 22:15 11/13/16 07:47 DC 11/13/16 04:09 Prenat Multivit/ [place]/Iron/Folic Ac ( S) 1 tab DAILY PO 11/12/16 09:00 11/22/16 09:07 Metformin HCl (Glucophage) 500 mg WITH BREAKFAST PO 11/12/16 07:35 11/12/16 19:03 DC 11/12/16 08:26 Metformin HCl (Glucophage) 500 mg WITH LUNCH PO 11/12/16 11:30 11/12/16 19:03 DC 11/12/16 12:44 Insulin Human NPH (Humulin N) 20 unit ONCE ONCE SC 11/11/16 22:30 11/11/16 22:33 DC 11/11/16 23:38 Betamethasone Acet/Betameth SodPhos ([place] Soluspan) 12 mg Q24H IM 11/12/16 00:00 11/13/16 00:01 DC 11/13/16 00:07 Acetaminophen (Tylenol Tab) 650 mg Q4H PRN PO PAIN AND OR ELEVATED TEMP 11/12/16 00:00 11/18/16 04:02 Diagnostic Test (Pha) (Accu-Chek) 1 ea FBSPP XX 11/12/16 07:30 11/12/16 10:40 DC 11/12/16 10:18 Insulin Human NPH (Humulin N) 20 unit HS SC 11/12/16 21:00 11/12/16 21:00 DC Aspirin (Aspirin) 81 mg DAILY@20 PO 11/12/16 20:00 11/21/16 20:17 Miscellaneous Information 1 ea NOTE XX 11/12/16 09:30 Glucose (Glutose) 15 gm Q15M PRN PO DECREASED GLUCOSE 11/12/16 09:30 Glucose (Glutose) 22.5 gm Q15M PRN PO DECREASED GLUCOSE 11/12/16 09:30 Dextrose (D50w Syringe) 25 ml Q15M PRN IV DECREASED GLUCOSE 11/12/16 09:30 Dextrose (D50w Syringe) 50 ml Q15M PRN IV DECREASED GLUCOSE 11/12/16 09:30 Glucagon (Glucagen) 1 mg Q15M PRN IM DECREASED GLUCOSE 11/12/16 09:30 Glucose (Glutose) 15 gm Q15M PRN BUCCAL DECREASED GLUCOSE 11/12/16 09:30 Insulin Aspart (Novolog Insulin Pen) 2 HOURS AFTER MEALS SC 11/12/16 11:00 11/12/16 18:52 DC 11/12/16 14:50 Diagnostic Test (Pha) (Accu-Chek) 1 ea FBSPP XX 11/12/16 14:00 11/12/16 18:57 DC 11/12/16 14:49 Miscellaneous Information (* Miscellaneous Pharmacy Order) 1 ea OB HYPOGLYCEMIA ONCE XX 11/12/16 11:00 11/12/16 11:01 DC Miscellaneous Information (* Miscellaneous Pharmacy Order) 1 ea ONCE ONCE XX 11/12/16 11:00 11/12/16 11:01 DC Diagnostic Test (Pha) (Accu-Chek) 1 ea AC MEALS AND BEDTIME XX 11/12/16 21:00 11/22/16 07:54 Insulin Aspart (Novolog Insulin Pen) Sliding scale insulin... AC MEALS PRN SC Elevated blood glucose 11/12/16 18:30 11/14/16 12:49 DC Diagnostic Test (Pha) (Accu-Chek) 1 ea FBSPP XX 11/12/16 20:05 11/12/16 20:05 DC Insulin Aspart (Novolog Insulin Pen) Check Blood gluc... Q4 SC 11/12/16 21:00 Future Hold 11/13/16 17:45 Insulin Human NPH (Novolin-N) 28 units AC BREAKFAST SC 11/13/16 07:30 11/13/16 07:30 DC Insulin Human NPH (Novolin-N) 20 units HS SC 11/12/16 21:00 11/12/16 21:00 DC Insulin Aspart (Novolog Insulin Pen) 14 unit WITH BREAKFAST SC 11/13/16 08:00 11/15/16 15:39 DC 11/15/16 08:42 Insulin Aspart (Novolog Insulin Pen) 12 unit WITH DINNER SC 11/13/16 18:05 11/15/16 15:39 DC 11/14/16 17:44 Miscellaneous Information (* Miscellaneous Pharmacy Order) 1 ea OB HYPOGLYCEMIA ONCE XX 11/12/16 18:30 11/12/16 19:04 DC Miscellaneous Information (* Miscellaneous Pharmacy Order) 1 ea ONCE ONCE XX 11/12/16 18:30 11/12/16 19:03 DC Diagnostic Test (Pha) (Accu-Chek) 1 ea FBSPP XX 11/12/16 20:05 11/12/16 20:35 DC Miscellaneous Information (* Miscellaneous Pharmacy Order) 1 ea OB HYPOGLYCEMIA ONCE XX 11/12/16 18:30 11/12/16 19:03 DC Miscellaneous Information (* Miscellaneous Pharmacy Order) 1 ea ONCE ONCE XX 11/12/16 18:30 11/12/16 19:01 DC Miscellaneous Information (* Miscellaneous Pharmacy Order) Discontinue ALL previ... ONCE ONCE XX 11/12/16 18:43 11/12/16 19:01 DC Insulin Human NPH (Humulin N) 20 unit HS SC 11/12/16 21:00 11/15/16 15:39 DC 11/14/16 21:18 Insulin Human NPH (Humulin N) 28 unit AC BREAKFAST SC 11/13/16 07:30 11/15/16 15:39 DC 11/15/16 08:44 Docusate Sodium (Colace) 100 mg ONCE ONCE PO 11/13/16 12:00 11/13/16 12:01 DC 11/13/16 12:13 Insulin Aspart (Novolog Insulin Pen) Sliding scale insulin... AC MEALS SC 11/14/16 13:00 11/21/16 20:15 Insulin Aspart (Novolog Insulin Pen) 12 unit WITH BREAKFAST SC 11/16/16 08:00 11/21/16 13:02 DC 11/21/16 09:12 Insulin Aspart (Novolog Insulin Pen) 10 unit WITH DINNER SC 11/15/16 18:05 11/16/16 14:41 DC 11/15/16 17:24 Insulin Human NPH (Humulin N) 14 unit HS SC 11/15/16 21:00 11/16/16 14:41 DC 11/15/16 21:17 Insulin Human NPH (Humulin N) 20 unit AC BREAKFAST SC 11/16/16 07:30 11/21/16 12:59 DC 11/21/16 09:09 Diagnostic Test (Pha) (Accu-Chek) 1 ea FBSPP XX 11/15/16 20:05 11/22/16 07:54 Miscellaneous Information (* Miscellaneous Pharmacy Order) 1 ea OB HYPOGLYCEMIA ONCE XX 11/15/16 16:00 11/15/16 16:00 DC Miscellaneous Information 1 ea 1 ea ONCE ONCE XX 11/15/16 16:00 11/15/16 16:00 DC Ampicillin (Ampicillin 2 Gm/ NS (Pmx)) 100 ml @ 100 mls/hr ONCE ONCE IVPB 11/16/16 11:00 11/16/16 11:59 DC 11/16/16 11:14 Cephalexin 500 mg 500 mg Q6 PO 11/16/16 12:00 11/22/16 06:04 Lactated Ringer's (Lr) 1,000 ml @ 125 mls/hr Q8H IV 11/16/16 11:00 Future Hold 11/16/16 11:14 Insulin Aspart (Novolog Insulin Pen) 12 unit WITH DINNER SC 11/16/16 18:05 11/21/16 18:21 Insulin Human NPH (Humulin N) 16 unit HS SC 11/16/16 21:00 11/21/16 13:00 DC 11/20/16 21:20 Insulin Aspart (Novolog Insulin Pen) 2 HOURS AFTER MEALS ONCE SC 11/21/16 14:00 11/21/16 14:01 DC 11/21/16 14:53 Insulin Human NPH (Humulin N) 26 unit AC BREAKFAST SC 11/22/16 07:30 11/22/16 09:04 Insulin Human NPH (Humulin N) 20 unit HS SC 11/21/16 21:00 11/21/16 21:28 Insulin Aspart (Novolog Insulin Pen) 16 unit WITH BREAKFAST SC 11/22/16 08:00 11/22/16 09:01 Insulin Aspart (Novolog Insulin Pen) 16 unit WITH BREAKFAST SC 11/22/16 08:00 11/22/16 08:[address] Flores is flowing this patient regularly, and recommended her to be delivered at 37th week of .. CASANDRA TALAMANTES MD November 22, 2016 09:56
[2016-11-22] MEDS: INSULIN ASPART [NOVOLOG] 3 ML PEN SC SCH (11:30)
== END 2016-11-22 13:15 | disposition left against medical advice (07) | DRG 778 ==
LOC: OBT 20:13 → L-D 20:14 → OBG 23:50 → OBT 23:50
PROVIDERS: ADMIT Obstetrics & Gynecology; ATTEND Obstetrics & Gynecology
DX: O60.03 Preterm labor without delivery, third trimester (principal); O11.3 Pre-existing hypertension with pre-eclampsia, third trimester; O24.113 Pre-existing type 2 diabetes mellitus, in pregnancy, third trimester; E11.65 Type 2 diabetes mellitus with hyperglycemia; Z3A.31 31 weeks gestation of pregnancy; Z79.4 Long term (current) use of insulin; Z79.84 Long term (current) use of oral hypoglycemic drugs; O40.3XX0 Polyhydramnios, third trimester, not applicable or unspecified; O36.63X0 Maternal care for excessive fetal growth, third trimester, not applicable or unspecified; O32.2XX0 Maternal care for transverse and oblique lie, not applicable or unspecified; O99.820 Streptococcus B carrier state complicating pregnancy
CPT/HCPCS: 36415; 76815; 76817; 76818; 80053; 80307; 81001; 81003; 82575; 82731; 82962; 83036; 83735; 84156; 84560; 85025; 85384; 85610; 85730; 86592; 86704; 86706; 86850; 86900; 86901; 87086; 87340; 93005; 96360; 96361; 96365; 96372; G0463; J0290; J0702; J1815; J3475; J7120

== ENCOUNTER 2016-12-05 12:16 | Inpatient (IN) | payer OTHER ==
[~2016-12-05] VITALS: Ht 152.4 cm; Wt 74.4 kg
[~2016-12-05 12:16] MED LIST changes: +ASPI81TA3 PO; +METF500T4 PO
[2016-12-05 13:56] VITALS: Ht 152.4 cm; Wt 74.4 kg
[2016-12-05 13:57] VITALS: BP 145/96; PULSE 69
--- NOTE | 2016-12-05 14:58 | RADRPT ---
PROCEDURE: Obstetrical ultrasound CLINICAL INDICATION: PIH TECHNIQUE: Multiple sonographic images of the pelvis were obtained. The images were reviewed on a PACS workstation. COMPARISON: None FINDINGS: The cervix is not well visualized. There is a single viable intrauterine gestation. Cardiac activity is present with 144 beats per minute. There is a breech presentation. The placenta is posterior. There is no evidence for an abruption or placenta previa. There is a subjectively normal amount of amniotic fluid. Measurements were made in order to determine age. The results are as follows (cm): BPD =8.13 HC =29.66 AC =34.28 FL =6.28 Estimated gestational age by ultrasound of approximately 34 weeks, 1 day. The estimated date of delivery by ultrasound is 01/15/2017. Estimated gestational age by LMP of approximately 35 weeks, 6 days. The estimated date of delivery by LMP is 01/03/2017. EFW = 2720 grams (43rd percentile) IMPRESSION: Single viable intrauterine gestation of approximately 34 weeks, 1 day . The estimated date of delivery is 01/15/2017 . Dating by ultrasound is within 12 days of dating by LMP. Breech presentation. RPTAT: EE Physician Zainab Date Time Electronically viewed and signed by Physician Zainab on 12/05/2016 14:57 /
--- NOTE | 2016-12-05 14:59 | RADRPT ---
PROCEDURE: US OB biophysical profile. CLINICAL INDICATION: evaluation TECHNIQUE: Multiple sonographic images of the pelvis were obtained. The images were reviewed on a PACS workstation. COMPARISON: Obstetrical ultrasound from 11/19/2016 FINDINGS: There is a single viable intrauterine gestation. Cardiac activity is present with 137 beats per min henry. There is a breech presentation. The placenta is posterior. There is no evidence of placental abruption. There is a normal amount of amniotic fluid with an JAYCEE = 16.0 cm. Biophysical profile: movement 2/2 tone 2/2. breathing 2/2 JAYCEE 2/2 Total 02/07 RPTAT: AA . IMPRESSION: Normal biophysical profile. Normal JAYCEE of 16.0 cm. Physician Zainab Date Time Electronically viewed and signed by Physician Zainab on 12/05/2016 14:58 RA/
[2016-12-05 15:09] LABS: ADD SCAN DIFF NO
[2016-12-05 15:11] LABS: BASOPHILS % 0.1 % (0.0-2.0); EOSINOPHILS # 0.1 10^3/ul (0.0-0.5); EOSINOPHILS % 0.8 % (0.0-7.0); HEMATOCRIT 32.9 % (37.0-47.0); LYMPHOCYTES # 1.9 10^3/ul (0.8-2.9); LYMPHOCYTES % 25.9 % (15.0-51.0); MEAN CORPUSCULAR HEMOGLOBIN 27.8 pg (29.0-33.0); MEAN CORPUSCULAR HGB CONC 33.4 g/dl (32.0-37.0); MEAN CORPUSCULAR VOLUME 83.3 fl (82.0-101.0); MONOCYTE # 0.4 10^3/ul (0.3-0.9); MONOCYTES % 6.1 % (0.0-11.0); NEUTROPHIL # 4.8 10^3/ul (1.6-7.5); NEUTROPHILS % 66.5 % (39.0-77.0); PLATELET COUNT 152 10^3/UL (140-415); RED BLOOD COUNT 3.95 10^6/ul (4.20-5.40); WHITE BLOOD COUNT 7.2 10^3/ul (4.8-10.8)
[2016-12-05 15:29] LABS: ALBUMIN 3.3 g/dl (3.3-4.9); BILIRUBIN,INDIRECT 0.1 mg/dl (0-1.1); BILIRUBIN,TOTAL 0.1 mg/dl (0.2-1.3); CALCIUM 8.9 mg/dl (8.4-10.2); CREATININE 0.43 mg/dl (0.44-1.00); POTASSIUM 3.9 mmol/L (3.5-5.1); TOTAL PROTEIN 6.6 g/dl (6.1-8.1); URIC ACID 4.6 mg/dl (3.1-7.9)
[2016-12-05 15:33] LABS: INR 0.91; PARTIAL THROMBOPLASTIN TIME 26.9 Sec (25.0-35.0); PROTIME 12.2 Sec (12.2-14.2)
[2016-12-05 16:19] LABS: URINE BLOOD (Dip) POC Negative (NEGATIVE)
[2016-12-05] MEDS ORDERED: LACTATED RINGER'S 1,000 ML IV SCH (16:35)
[2016-12-05] MEDS ORDERED: OXYTOCIN 30 UNITS/LR 500 ML IV PRN (17:00)
[2016-12-05] MEDS ORDERED: CARBOPROST 250 MCG INJ IM PRN (17:00)
[2016-12-05] MEDS ORDERED: CEFAZOLIN 2 GM/50 ML (PMX) 50 ML IVPB SCH (17:00)
[2016-12-05] MEDS ORDERED: METHYLERGONOVINE 0.2 MG INJ IM PRN (17:00)
[2016-12-05] MEDS ORDERED: MISOPROSTOL 200 MCG TAB PR PRN (17:00)
[2016-12-05] MEDS ORDERED: OXYTOCIN 30 UNITS/LR 500 ML IV SCH (17:00)
[2016-12-05] MEDS ORDERED: INSULIN REGULAR, HUMAN 100 UNIT/1 ML 3ML VIAL SC ONE (17:00)
[2016-12-05] MEDS ORDERED: ONDANSETRON 4 MG INJ ONE (17:33)
[2016-12-05] MEDS ORDERED: CITRIC ACID/SODIUM CITRATE 15 ML CUP ONE (17:33)
[2016-12-05] MEDS ORDERED: ONDANSETRON 4 MG INJ IV STA ×2 (17:46→17:50)
[2016-12-05] MEDS ORDERED: CITRIC ACID/SODIUM CITRATE 15 ML CUP PO ONE ×2 (18:00)
[2016-12-05] MEDS ORDERED: METOCLOPRAMIDE 10 MG INJ ONE (18:16)
[2016-12-05] MEDS ORDERED: OXYTOCIN 10 UNIT INJ ONE (18:16)
[2016-12-05] MEDS ORDERED: PHENYLephrine (100 MCG/ML) 5ML SYG ONE (18:16)
[2016-12-05] MEDS ORDERED: FENTAnyl 50 MCG/ML VIAL ONE (18:16)
[2016-12-05] MEDS ORDERED: morphine SULFATE/PF (10 MG/10 ML) INJ ONE (18:16)
[2016-12-05] MEDS ORDERED: NALOXONE (0.4 MG/ML) INJ IV PRN (19:00)
[2016-12-05] MEDS ORDERED: MIDAZOLAM 1 MG/ML 2 ML INJ IV PRN (19:00)
[2016-12-05] MEDS ORDERED: LABETALOL HCL 20MG INJ IV PRN (19:00)
[2016-12-05] MEDS ORDERED: DIPHENHYDRAMINE 50 MG INJ IV PRN ×2 (19:00)
[2016-12-05] MEDS ORDERED: ZOLPIDEM 5 MG TAB PO PRN (19:00)
[2016-12-05] MEDS ORDERED: FENTAnyl 50 MCG/ML VIAL IV PRN ×3 (19:00)
[2016-12-05] MEDS ORDERED: MEPERIDINE 25 MG INJ IV PRN (19:00)
[2016-12-05] MEDS ORDERED: ONDANSETRON 4 MG INJ IV PRN ×2 (19:00)
[2016-12-05] MEDS ORDERED: morphine 2 MG INJ IV PRN ×2 (19:00)
[2016-12-05] MEDS ORDERED: hydrALAzine 20 MG INJ IV PRN (19:00)
[2016-12-05] MEDS ORDERED: KETOROLAC 30 MG INJ IV PRN (19:00)
[2016-12-05] MEDS ORDERED: HYDROmorphONE (0.2 MG/ML) 10ML SYG IV PRN ×2 (19:00)
[2016-12-05] MEDS ORDERED: TRIMETHOBENZAMIDE 100 MG/ML VIAL IM PRN (19:00)
[2016-12-05] MEDS ORDERED: EPHEDrine SULFATE 50 MG/5 ML SYG IV PRN (19:00)
--- NOTE | 2016-12-05 19:06 | HP ---
DATE OF ADMISSION: 12/05/2016 HISTORY OF PRESENT ILLNESS: The patient is a 31-year-old G4, P3, at 35 and 4/7 weeks. The patient states in the clinic that she has had decreased movement and was instructed that the hea rt tones were low and was instructed to come in. The patient upon arrival had blood pressures in th e 150s, 160s, as high as 190s. The patient has no headaches, no right upper quadrant pain, no other complaints. Upon admission as well, it is a category 2 tracing. Patient has been admitted prior f or poorly controlled diabetes and had abnormal Dopplers as far as growth. The patient's blood sugar upon admission was also 180. Laboratory exams within normal limits. There is a +1 protein. PAST MEDICAL HISTORY: History of gestational hypertension, type 2 diabetes, poorly controlled. PAST SURGICAL HISTORY: x3. MEDICATIONS: Insulin and metformin. PHYSICAL EXAMINATION: VITAL SIGNS: Blood pressure between 150s to 160s with occasional 190s. Other vitals within normal limits. CHEST: Regular rhythm. LUNGS: Clear to auscultation bilaterally. ABDOMEN: Soft, nontender. No rebound or guarding. EXTREMITIES: There is no edema. LABORATORIES: There was a category 2 tracing. CBC, CMP within normal limits. Blood sugar is 178. ASSESSMENT: Intrauterine at 35-1/2 weeks, poorly controlled diabetes, elevated blood pres sures, +1 protein and a category 2 tracing. History of abnormal ultrasound Dopplers. Discussion [facility] Perinatology is recommended due to these facts. The patient with mild to severe preeclampsia and abnormal ultrasound, Doppler ultrasounds, category 2 tracing. The patient to be delivered. The jean garza has a history of x3 and desires repeat. Risks and benefits discussed. The risk of infection, bleeding, damage to organs, blood clots, blood transfusion discussed with patient and pat florencent also desires for bilateral tubal ligation. Risks of failure discussed. Risk of failure approx imately about 10 out of 1000 discussed with patient and possibility of ectopic if the emma ent does get discussed with patient. Patient understands all the risks and consents to a r epeat section and also bilateral tubal ligation. The patient to OR for repeat . Dictated By: NIESHA DUNLAP MD /NTS Conf#: [id number] [facility]#: [id number]
[2016-12-05 19:41] LABS: CBV Base Excess -5.1 mmol/L; CBV COHb 1.2 %; CBV Oxygen Sat 71.9 mmHG; CBV Total Hemglobin 14.9 g/dl; Cord Blood Venous pO2 34.3 mmHG (15.0-45.0); Fraction OxyHgb Cord Venous 70.2 %; MODE ROOM AIR; MetHgb Cord Venous 1.2 %; Sample Type Blood venous
[2016-12-05] MEDS: HYDROmorphONE (0.2 MG/ML) 10ML SYG IV PRN ×3 (21:39→23:30)
[2016-12-06] VITALS (7 sets, daily range): BP systolic 112–133; BP diastolic 69–88; PULSE 68–105; RESP 17–18
[2016-12-06] MEDS ORDERED: LANOLIN 7 GM TUBE TOP PRN
[2016-12-06] MEDS ORDERED: NA PHOSPHATE/BIPHOS 133 ML ENEMA PR PRN
[2016-12-06] MEDS ORDERED: OXYTOCIN 30 UNITS/LR 500 ML IV PRN
[2016-12-06] MEDS ORDERED: ACETAMINOPHEN/CODEINE #3 TAB PO PRN
[2016-12-06] MEDS ORDERED: MISOPROSTOL 200 MCG TAB PR PRN
[2016-12-06] MEDS ORDERED: CARBOPROST 250 MCG INJ IM PRN
[2016-12-06] MEDS: LACTATED RINGER'S 1,000 ML IV SCH ×8 (00:30→17:06)
[2016-12-06] MEDS ORDERED: METHYLERGONOVINE 0.2 MG INJ IM PRN ×2 (00:30)
[2016-12-06] MEDS ORDERED: OXYTOCIN 30 UNITS/LR 500 ML IV SCH (00:30)
[2016-12-06] MEDS: OXYTOCIN 30 UNITS/LR 500 ML IV SCH ×2 (00:57→03:39)
[2016-12-06] MEDS ORDERED: morphine 2 MG INJ IV PRN (01:00)
[2016-12-06] MEDS ORDERED: NALOXONE (0.4 MG/ML) INJ IV PRN (01:00)
[2016-12-06] MEDS ORDERED: morphine 4 MG/ML VIAL IV PRN (01:00)
[2016-12-06] MEDS ORDERED: KETOROLAC 30 MG INJ IV PRN (01:00)
[2016-12-06] MEDS ORDERED: DIPHENHYDRAMINE 50 MG INJ IV PRN (01:00)
[2016-12-06] MEDS ORDERED: ONDANSETRON 4 MG INJ IV PRN (01:00)
[2016-12-06] MEDS ORDERED: LACTATED RINGER'S 250 ML IV ONE ×2 (04:00→09:30)
--- NOTE | 2016-12-06 07:05 | OPR ---
DATE OF OPERATION: PREOPERATIVE DIAGNOSES: 1. Intrauterine at 35-4/7 weeks. 2. Severe -induced hypertension. 3. Poorly controlled diabetes. 4. Category II tracing with a history of abnormal Doppler ultrasounds. INDICATIONS: The patient is a 31-year-old G4, P3 ____ 35-4/7 weeks sent from the [facility] office for decreased movement and, per patient, bradycardia. The patient has history of poorly con trolled diabetes, also with a questionable history of gestational hypertension. Upon presentation t o the [facility], patient had initial blood pressures in the 150s, 160s and an occasional blood pressu re in the 190s. Laboratory examination was in normal limits, although the patient did have 1+ prote in. ____ 188. The patient also had a history of previous admission with ultrasound showing abnorma l Doppler studies per [facility]. ____ was consulted, and due to the above reasons, patient was then conse nted for a repeat section and bilateral tubal ligation. FINDINGS: Viable infant, breech presentation. POSTOPERATIVE DIAGNOSES: 1. Intrauterine at 35-4/7 weeks. 2. Severe -induced hypertension. 3. Poorly controlled diabetes. 4. Category II tracing with a history of abnormal Doppler ultrasounds. PROCEDURE: 1. Repeat low segment transverse section. 2. Lysis of adhesions. 3. Tubal ligation using modified [place] method. COMPLICATIONS: None. ESTIMATED BLOOD LOSS: 800 DESCRIPTION OF PROCEDURE: The patient taken to operating room, where spinal anesthesia was found to be adequate. The patient was then prepared, draped in normal sterile fashion. ID was confirmed. Using a scalpel, a Pfannenstiel incision made, the incision taken down to underlying fascia. The fa scia nicked in midline, extended in both directions using the Guillen scissors, the fascia taken off th e rectus muscle superiorly ____ identified. The peritoneum was then entered. At this point, it was noted that there were dense adhesions of the uterus to the upper abdominal wall. Next, the rectus muscles superiorly were cut using the Bovie in order to allow more room. At this point, the fascia was then gently taken down to avoid any damage to the bladder. At this point, an incision could be made in the lower uterine segment, a transverse incision. This was made. Infant was thus found to be breech presentation and was then delivered via breech extraction without any difficulty. The miroslava lomeli was delivered, the uterus exteriorized, cleared of blood clots and debris. The uterine incisi on was closed with ____ Monocryl in running fashion. A second imbricating layer was also placed. A reas of bleeding were ligated using another 1 Monocryl. There was a dense omental adhesion to the a nterior superior portion of the uterus. This omental adhesion was clamped with 2 ____ cut and ligat ed with 0 Vicryl. Next, using a modified Mary method, an approximately 2 cm segment of the fallo pian tube was ligated and cut on the left side ____ a 2 cm segment of the left fallopian tube was li gated and cut. Good hemostasis was noted. Uterus placed back in abdominal cavity. Some minor blee ding was noted from the uterine incision. Another suture of 0 chromic was used to ligate with good hemostasis. Some Surgicel and Surgifoam were placed across the uterine incision to ensure proper he mostasis as there were small denuded areas on the uterus from the previous adhesions that were taken down. ____ there was good hemostasis, so rectus muscles brought back together in midline only in t he lower segment of the rectus muscles. The superior aspect, due to the fact that the patient had d ense adhesions, this was difficult and was left open. The rectus muscles bilaterally that were cut were sutured using an 0 chromic ____ good hemostasis. The fascia was brought back together in midli ne using an 0 Vicryl. The subcutaneous fat was closed with a 2-0 plain. The skin was stapled. The patient tolerated procedure well. Lap, needle counts were correct x2, and the patient was taken to recovery. Dictated By: NIESHA DUNLAP MD /JULIO Conf#: [id number] DID#: [id number]
[2016-12-06] MEDS ORDERED: metFORMIN 500 MG TAB PO SCH ×2 (07:35→11:30)
[2016-12-06 08:09] LABS: ADD SCAN DIFF NO
[2016-12-06 08:13] LABS: BASOPHILS % 0.1 % (0.0-2.0); EOSINOPHILS % 0.2 % (0.0-7.0); HEMATOCRIT 27.4 % (37.0-47.0); HEMOGLOBIN 8.9 g/dl (12.0-16.0); LYMPHOCYTES # 1.1 10^3/ul (0.8-2.9); LYMPHOCYTES % 10.6 % (15.0-51.0); MEAN CORPUSCULAR HEMOGLOBIN 27.4 pg (29.0-33.0); MEAN CORPUSCULAR HGB CONC 32.5 g/dl (32.0-37.0); MEAN CORPUSCULAR VOLUME 84.3 fl (82.0-101.0); MONOCYTE # 0.5 10^3/ul (0.3-0.9); MONOCYTES % 4.4 % (0.0-11.0); NEUTROPHILS % 84.4 % (39.0-77.0); PLATELET COUNT 135 10^3/UL (140-415); RED BLOOD COUNT 3.25 10^6/ul (4.20-5.40); RED CELL DISTRIBUTION WIDTH 14.1 % (11.5-14.5); WHITE BLOOD COUNT 10.7 10^3/ul (4.8-10.8)
[2016-12-06] MEDS: SENNA/DOCUSATE NA (8.6MG/50MG) TAB PO SCH ×2 (08:52→21:58)
[2016-12-06] MEDS: MULTIVIT/MIN/FOLATE/IRON/PREN TAB PO SCH (08:52)
--- NOTE | 2016-12-06 09:48 | PN ---
Date/Time of Note Date/Time of Note DATE: 12/06/16 TIME: 09:35 OB Subjective Subjective Subjective December 06, 2016 Post day 1 Today is her first post day of this 31 years old 4 para 3 now para 4 She was admitted yesterday with blood pressure 180/90 and 190s over 101. With history of class B diabetes At 34 weeks and 4 days she had a due to decreased movement . Laboratory Tests Test 12/05/16 14:30 12/05/16 16:22 12/05/16 19:27 12/05/16 22:34 White Blood Count 7.210^3/ul Red Blood Count 3.9510^6/ul Hemoglobin 11.0g/dl Hematocrit 32.9% Mean Corpuscular Volume 83.3fl Mean Corpuscular Hemoglobin 27.8pg Mean Corpuscular Hemoglobin Concent 33.4g/dl Red Cell Distribution Width 14.0% Platelet Count 47979^3/UL Mean Platelet Volume 13.0fl Neutrophils % 66.5% Lymphocytes % 25.9% Monocytes % 6.1% Eosinophils % 0.8% Basophils % 0.1% Nucleated Red Blood Cells % 0.0/100WBC Neutrophils # 4.810^3/ul Lymphocytes # 1.910^3/ul Monocytes # 0.410^3/ul Eosinophils # 0.110^3/ul Basophils # 0.010^3/ul Nucleated Red Blood Cells # 0.010^3/ul Prothrombin Time 12.2Sec Prothrombin Time Ratio 1.0 INR International Normalized Ratio 0.91 Activated Partial Thromboplast Time 26.9Sec Fibrinogen 616.0mg/dl Sodium Level 136mmol/L Potassium Level 3.9mmol/L Chloride Level 109mmol/L Carbon Dioxide Level 20mmol/L Anion Gap 11 Blood Urea Nitrogen 12mg/dl Creatinine 0.43mg/dl Glucose Level 188mg/dl Uric Acid 4.6mg/dl Calcium Level 8.9mg/dl Total Bilirubin 0.1mg/dl Direct Bilirubin 0.00mg/dl Indirect Bilirubin 0.1mg/dl Aspartate Amino Transf (AST/SGOT) 18IU/L Alanine Aminotransferase (ALT/SGPT) 35IU/L Alkaline Phosphatase 149IU/L Total Protein 6.6g/dl Albumin 3.3g/dl Globulin 3.30g/dl Albumin/Globulin Ratio 1.00 Rapid Plasma Reagin NONREACTIVE Bedside Urine pH (LAB) 6.0 Bedside Urine Protein (LAB) 1+ Bedside Urine Glucose (UA) 0.50% Bedside Urine Ketones (LAB) Trace Bedside Urine Blood Negative Bedside Urine Nitrite (LAB) Negative Bedside Urine Leukocyte Esterase (L Negative Bedside Glucose 176mg/dL 119mg/dL Blood Gas Specimen Source Blood venous Arterial Blood Date Drawn 12/05/2016 7:25:41 PM Arterial Blood Gas Puncture Site VENOUS LINE Justin Test N/A Cord Blood Carboxyhemoglobin 1.2% Cord Venous Blood pH 7.250 Cord Venous Blood PCO2 53.0mmHG Cord Venous Blood PO2 34.3mmHG Cord Venous Blood HCO3 22.7mmol/L Cord Venous Blood Base Excess -5.1mmol/L POC Cord Venous Blood Oxygen Sat 71.9mmHG Cord Venous Blood Hemoglobin 14.9g/dl Cord Venous Blood Oxyhemoglobin 70.2% Cord Venous Blood Methemoglobin 1.2% Blood Gas Temperature 37.0C Blood Gas Modality ROOM AIR FiO2 21.0% Blood Gas Low PEEP Setting 5.0cmH2O Blood Gas Notified Whom C.V. Blood Gas Notified Time 12/05/2016 7:40:23 PM Test 12/06/16 02:33 12/06/16 05:29 12/06/16 07:20 Bedside Glucose 99mg/dL 83mg/dL White Blood Count 10.710^3/ul Red Blood Count 3.2510^6/ul Hemoglobin 8.9g/dl Hematocrit 27.4% Mean Corpuscular Volume 84.3fl Mean Corpuscular Hemoglobin 27.4pg Mean Corpuscular Hemoglobin Concent 32.5g/dl Red Cell Distribution Width 14.1% Platelet Count 40783^3/UL Mean Platelet Volume 13.0fl Neutrophils % 84.4% Lymphocytes % 10.6% Monocytes % 4.4% Eosinophils % 0.2% Basophils % 0.1% Nucleated Red Blood Cells % 0.0/100WBC Neutrophils # 9.010^3/ul Lymphocytes # 1.110^3/ul Monocytes # 0.510^3/ul Eosinophils # 0.010^3/ul Basophils # 0.010^3/ul Nucleated Red Blood Cells # 0.010^3/ul Current Medications Medications (Trade) Dose Ordered Sig/Guille Route PRN Reason Start Time Stop Time Status Last Admin Dose Admin Lactated Ringer's 1,000 ml @ 125 mls/hr Q8H IV 12/05/16 16:35 12/05/16 23:42 DC 12/05/16 17:14 Cefazolin Sodium/ Dextrose 50 ml @ 100 mls/hr ONCE IVPB 12/05/16 17:00 12/05/16 23:42 DC Oxytocin/Lactated Ringer's 500 ml @ 125 mls/hr ONCE IV 12/05/16 17:00 12/05/16 23:43 DC Oxytocin/Lactated Ringer's 500 ml @ 0 mls/hr ONCE PRN IV For Hemorrhage Management 12/05/16 17:00 12/05/16 23:43 DC Methylergonovine Maleate (Methergine) 0.2 mg ONCE PRN IM VAGINAL BLEEDING 12/05/16 17:00 12/05/16 23:43 DC Carboprost Tromethamine (Hemabate) 250 mcg ONCE PRN IM VAGINAL BLEEDING 12/05/16 17:00 12/05/16 23:43 DC Misoprostol (Cytotec) 1,000 mcg ONCE PRN AK VAGINAL BLEEDING 12/05/16 17:00 12/05/16 23:43 DC Insulin Human Regular (Humulin R) 2 unit ONCE ONCE SC 12/05/16 17:00 12/05/16 17:01 DC 12/05/16 17:04 Citric Acid/ Sodium Citrate (Bicitra) 15 ml STK-MED ONCE .ROUTE 12/05/16 17:33 12/05/16 17:34 DC Ondansetron HCl (Zofran Inj) 4 mg STK-MED ONCE .ROUTE 12/05/16 17:33 12/05/16 17:34 DC Citric Acid/ Sodium Citrate (Bicitra) 30 ml ONCE ONCE PO 12/05/16 18:00 12/05/16 18:01 DC 12/05/16 17:54 Ondansetron HCl (Zofran Inj) 4 mg ONCE STAT IV 12/05/16 17:46 12/05/16 17:48 DC 12/05/16 17:55 Ondansetron HCl (Zofran Inj) 4 mg ONCE STAT IV 12/05/16 17:50 12/05/16 17:56 DC Citric Acid/ Sodium Citrate (Bicitra) 30 ml ONCE ONCE PO 12/05/16 18:00 12/05/16 18:01 DC Morphine Sulfate (Duramorph) 10 mg STK-MED ONCE .ROUTE 12/05/16 18:16 12/05/16 18:17 DC Fentanyl (Sublimaze) 100 mcg STK-MED ONCE .ROUTE 12/05/16 18:16 12/05/16 18:17 DC Metoclopramide HCl (Reglan) 10 mg STK-MED ONCE .ROUTE 12/05/16 18:16 12/05/16 18:17 DC Oxytocin (Oxytocin) 10 units STK-MED ONCE .ROUTE 12/05/16 18:16 12/05/16 18:17 DC Phenylephrine HCl (Fadi-Synephrine Inj Syg) 500 mcg STK-MED ONCE .ROUTE 12/05/16 18:16 12/05/16 18:17 DC Hydromorphone HCl (Dilaudid (Rec)) 0.2 mg PACU ORDER PRN IV MILD PAIN LEVEL 1-3 12/05/16 19:00 12/05/16 23:43 DC 12/05/16 23:30 Hydromorphone HCl (Dilaudid (Rec)) 0.4 mg PACU ORDER PRN IV MODERATE PAIN LEVEL 4-6 12/05/16 19:00 12/05/16 23:43 DC Hydromorphone HCl (Dilaudid (Rec)) 0.6 mg PACU ORDER PRN IV SEVERE PAIN LEVEL 7-10 12/05/16 19:00 12/05/16 23:43 DC Fentanyl (Sublimaze) 25 mcg PACU ORDER PRN IV MILD PAIN LEVEL 1-3 12/05/16 19:00 12/05/16 23:43 DC Fentanyl (Sublimaze) 50 mcg PACU ODER PRN IV MODERATE PAIN LEVEL 4-6 12/05/16 19:00 12/05/16 23:43 DC Fentanyl (Sublimaze) 75 mcg PACU ORDER PRN IV SEVERE PAIN LEVEL 7-10 12/05/16 19:00 12/05/16 23:43 DC Ondansetron HCl (Zofran Inj) 4 mg PACU ORDER PRN IV NAUSEA AND/OR VOMITING 12/05/16 19:00 12/05/16 23:43 DC Trimethobenzamide HCl (Tigan) 200 mg PACU ORDER PRN IM NAUSEA AND/OR VOMITING 12/05/16 19:00 12/05/16 23:43 DC Labetalol HCl (Labetalol) 5 mg PACU ORDER PRN IV HIGH BLOOD PRESSURE 12/05/16 19:00 12/05/16 23:43 DC Hydralazine HCl (Apresoline) 5 mg PACU ORDER PRN IV HIGH BLOOD PRESSURE 12/05/16 19:00 12/05/16 23:43 DC Ephedrine Sulfate 5 mg PACU ORDER PRN IV MAP LESS THAN 60 12/05/16 19:00 12/05/16 23:43 DC Meperidine HCl (Demerol) 25 mg PACU ORDER PRN IV POST-OP RIGORS 12/05/16 19:00 12/05/16 23:43 DC Diphenhydramine HCl (Benadryl) 25 mg PACU ORDER PRN IV PRURITUS 12/05/16 19:00 12/05/16 23:43 DC Midazolam HCl (Versed) 0.5 mg PACU ORDER PRN IV ANXIETY 12/05/16 19:00 12/05/16 23:43 DC Naloxone HCl (Narcan) 0.1 mg Q2M PRN IV FOR RESP RATE 8 OR LESS 12/05/16 19:00 12/05/16 23:43 DC Ketorolac Tromethamine (Toradol) 30 mg Q6H PRN IV PAIN 12/05/16 19:00 12/05/16 23:43 DC 12/05/16 23:28 Morphine Sulfate (morphine) 2 mg Q3H PRN IV PAIN LEVEL 1-5 12/05/16 19:00 12/05/16 23:43 DC Morphine Sulfate (morphine) 4 mg Q3H PRN IV PAIN LEVEL 6-10 12/05/16 19:00 12/05/16 23:43 DC Diphenhydramine HCl (Benadryl) 25 mg Q6H PRN IV ITCHING 12/05/16 19:00 12/05/16 23:43 DC Ondansetron HCl (Zofran Inj) 4 mg Q6H PRN IV NAUSEA AND/OR VOMITING 12/05/16 19:00 12/05/16 23:43 DC Zolpidem Tartrate (Ambien) 5 mg HS MAY REPEAT X 1 PRN PO INSOMNIA 12/05/16 19:00 12/05/16 23:43 DC Miscellaneous Information Duramorph: 0.2 mg Spi... GIVEN XX 12/05/16 19:00 12/05/16 23:43 DC Lactated Ringer's 1,000 ml @ 125 mls/hr Q8H IV 12/05/16 23:39 12/06/16 08:04 Oxytocin/Lactated Ringer's 500 ml @ 125 mls/hr Q4H IV 12/05/16 23:39 12/06/16 07:38 DC 12/06/16 00:57 Acetaminophen/ Codeine Phosphate (Tylenol No.3) 1 tab Q4H PRN PO PAIN LEVEL 4-6 12/06/16 00:00 Acetaminophen/ Codeine Phosphate (Tylenol No.3) 2 tab Q4H PRN PO PAIN LEVEL 7-10 12/06/16 00:00 Ibuprofen (Motrin) 800 mg Q8 PO 12/06/16 22:00 Simethicone (Mylicon) 160 mg Q8H PRN PO DISTENSION/GAS/BLOATING 12/06/16 00:00 Senna/Docusate Sodium (Senokot-S) 1 tab BID PO 12/06/16 09:00 Sodium Biphosphate/ Sodium Phosphate (Fleet Enema) 133 ml DAILY PRN AK CONSTIPATION 12/06/16 00:00 Lanolin 1 applic 1 applic BEDSIDE MEDICATION PRN TOP BEDSIDE FOR JOSE TO NIPPLES 12/06/16 00:00 Oxytocin/Lactated Ringer's 500 ml @ 0 mls/hr ONCE PRN IV For Hemorrhage Management 12/06/16 00:00 Methylergonovine Maleate (Methergine) 0.2 mg ONCE PRN IM VAGINAL BLEEDING 12/06/16 00:00 Carboprost Tromethamine (Hemabate) 250 mcg ONCE PRN IM VAGINAL BLEEDING 12/06/16 00:00 Misoprostol (Cytotec) 1,000 mcg ONCE PRN [place] VAGINAL BLEEDING 12/06/16 00:00 Metformin HCl (Glucophage) 500 mg WITH BREAKFAST PO 12/06/16 07:35 12/06/16 07:35 DC Metformin HCl (Glucophage) 500 mg WITH LUNCH DINNER PO 12/06/16 11:30 12/06/16 11:30 DC Prenat Multivit/ Cook Helper Meat/Iron/Folic Ac 1 tab 1 tab DAILY PO 12/06/16 09:00 12/06/16 08:52 Lactated Ringer's 1,000 ml @ 125 mls/hr Q8H IV 12/06/16 00:30 Oxytocin/Lactated Ringer's 500 ml @ 125 mls/hr ONCE IV 12/06/16 00:30 Methylergonovine Maleate (Methergine) 0.2 mg ONCE PRN IM VAGINAL BLEEDING 12/06/16 00:30 Diphenhydramine HCl (Benadryl) 25 mg Q6H PRN IV ITCHING 12/06/16 01:00 Ketorolac Tromethamine (Toradol) 30 mg Q6H PRN IV PAIN 12/06/16 01:00 12/09/16 00:59 UNV Ondansetron HCl (Zofran Inj) 4 mg Q4H PRN IV NAUSEA AND/OR VOMITING 12/06/16 01:00 Naloxone HCl (Narcan) 0.2 mg Q2M PRN IV DECREASED REPIRATORY RATE 12/06/16 01:00 Morphine Sulfate (morphine) 2 mg Q3H PRN IV PAIN LEVEL 1-5 12/06/16 01:00 Morphine Sulfate (morphine) 4 mg Q3H PRN IV PAIN LEVEL 6-10 12/06/16 01:00 Ketorolac Tromethamine 30 mg 30 mg Q6H PRN IV PAIN 12/06/16 01:00 12/09/16 00:59 Lactated Ringer's 250 ml @ 300 mls/hr Q50M ONCE IV 12/06/16 04:00 12/06/16 04:49 DC 12/06/16 03:51 Lactated Ringer's 1,000 ml @ 125 mls/hr Q8H IV 12/06/16 06:00 Lactated Ringer's (Lr) 250 ml @ 300 mls/hr Q50M ONCE IV 12/06/16 09:30 12/06/16 10:19 12/06/16 09:10 Furosemide (Lasix) 20 mg ONCE ONCE IV 12/06/16 10:00 12/06/16 10:01 On examination today, Abdomen is soft, bowel sounds are present Chest is clear Breasts are soft, nipples are intact No calf tenderness Moderate amount of lochia is in NICU Despite adequate hydration she continued to have low urine out put . Following hydration I ordered 20 mg of Lasix IV and an hour later her urine out put was 700 cc. She is now doing well. CASANDRA TALAMANTES MD Dec 06, 2016 09:46
[2016-12-06] MEDS ORDERED: FUROSEMIDE 20 MG INJ IV ONE (10:00)
[2016-12-06] MEDS: KETOROLAC 30 MG INJ IV PRN ×2 (11:35→18:01)
[2016-12-06] MEDS: IBUPROFEN 800 MG TAB PO SCH (21:58)
[2016-12-07 04:00] VITALS: BP 126/85; PULSE 91; RESP 18
[2016-12-07] MEDS: ACETAMINOPHEN/CODEINE #3 TAB PO PRN ×2 (04:47→19:51)
[2016-12-07] MEDS: IBUPROFEN 800 MG TAB PO SCH ×3 (06:07→22:39)
[2016-12-07 08:00] VITALS: BP 121/81; PULSE 90; RESP 20
[2016-12-07] MEDS: MULTIVIT/MIN/FOLATE/IRON/PREN TAB PO SCH (09:06)
[2016-12-07] MEDS: SENNA/DOCUSATE NA (8.6MG/50MG) TAB PO SCH ×3 (09:06→21:34)
[2016-12-07] MEDS: metFORMIN 500 MG TAB GTB SCH ×2 (12:43→17:53)
--- NOTE | 2016-12-07 12:45 | PN ---
Date/Time of Note Date/Time of Note DATE: 12/07/16 TIME: 12:45 OB Subjective Subjective Subjective Denies any complaint. Breast-feeding. Passed flatus. Ambulating. Complaining of swelling of both lower extremity. Lochia in the amount of menses. Pain controlled with p.o. pain medication. Patient reports prior to she was taking metformin 500 mg p.o. twice daily. Denies any headache , blurred vision or epigastric pain OB Objective Objective Objective General appearance: Alert and oriented 4 patient does not appear to be in any acute distress. Abdomen: Soft, appropriate tenderness in the incision. No abnormal drainage from the incision. Incision: Clean dry and intact Extremities: 2+ nonpitting bilateral symmetric lower extremity edema. Breasts: No evidence of mastitis, fissure, engorgement. Lungs: Clear to auscultation bilaterally Random blood sugar above 200 Hemoglobin A1c: 10 Hematology - 72 Hrs Test 12/05/16 14:30 12/06/16 07:20 White Blood Count 7.210^3/ul (4.8-10.8) 10.710^3/ul (4.8-10.8) # Red Blood Count 3.9510^6/ul (4.20-5.40) L 3.2510^6/ul (4.20-5.40) L Hemoglobin 11.0g/dl (12.0-16.0) L 8.9g/dl (12.0-16.0) L Hematocrit 32.9% (37.0-47.0) L 27.4% (37.0-47.0) L Mean Corpuscular Volume 83.3fl (82.0-101.0) 84.3fl (82.0-101.0) Mean Corpuscular Hemoglobin 27.8pg (29.0-33.0) L 27.4pg (29.0-33.0) L Mean Corpuscular Hemoglobin Concent 33.4g/dl (32.0-37.0) 32.5g/dl (32.0-37.0) Red Cell Distribution Width 14.0% (11.5-14.5) 14.1% (11.5-14.5) Platelet Count 26235^3/UL (140-415) # 70549^3/UL (140-415) L Mean Platelet Volume 13.0fl (7.4-10.4) H 13.0fl (7.4-10.4) H Neutrophils % 66.5% (39.0-77.0) 84.4% (39.0-77.0) H Lymphocytes % 25.9% (15.0-51.0) 10.6% (15.0-51.0) L Monocytes % 6.1% (0.0-11.0) 4.4% (0.0-11.0) Eosinophils % 0.8% (0.0-7.0) 0.2% (0.0-7.0) Basophils % 0.1% (0.0-2.0) 0.1% (0.0-2.0) Nucleated Red Blood Cells % 0.0/100WBC (0.0-0.0) 0.0/100WBC (0.0-0.0) Neutrophils # 4.810^3/ul (1.6-7.5) 9.010^3/ul (1.6-7.5) H Lymphocytes # 1.910^3/ul (0.8-2.9) 1.110^3/ul (0.8-2.9) Monocytes # 0.410^3/ul (0.3-0.9) 0.510^3/ul (0.3-0.9) Eosinophils # 0.110^3/ul (0.0-0.5) 0.010^3/ul (0.0-0.5) Basophils # 0.010^3/ul (0.0-0.1) 0.010^3/ul (0.0-0.1) Nucleated Red Blood Cells # 0.010^3/ul (0.0-0.0) 0.010^3/ul (0.0-0.0) Chemistry Test 12/05/16 14:30 12/05/16 16:22 12/05/16 22:34 12/06/16 02:33 Sodium Level 136mmol/L (135-144) Potassium Level 3.9mmol/L (3.5-5.1) Chloride Level 109mmol/L (97-110) Carbon Dioxide Level 20mmol/L (21-31) L Anion Gap 11 (8-16) Blood Urea Nitrogen 12mg/dl (7-20) Creatinine 0.43mg/dl (0.44-1.00) L Glucose Level 188mg/dl (70-220) Uric Acid 4.6mg/dl (3.1-7.9) Calcium Level 8.9mg/dl (8.4-10.2) Total Bilirubin 0.1mg/dl (0.2-1.3) L Direct Bilirubin 0.00mg/dl (0.00-0.20) Indirect Bilirubin 0.1mg/dl (0-1.1) Aspartate Amino Transf (AST/SGOT) 18IU/L (15-46) Alanine Aminotransferase (ALT/SGPT) 35IU/L (13-69) Alkaline Phosphatase 149IU/L (42-121) H Total Protein 6.6g/dl (6.1-8.1) Albumin 3.3g/dl (3.3-4.9) Globulin 3.30g/dl (1.3-3.2) H Albumin/Globulin Ratio 1.00 Bedside Glucose 176mg/dL (70-220) 119mg/dL (70-220) 99mg/dL (70-220) Test 12/06/16 05:29 12/06/16 11:29 12/06/16 14:47 12/06/16 19:45 Bedside Glucose 83mg/dL (70-220) 77mg/dL (70-220) 76mg/dL (70-220) 134mg/dL (70-220) Test 12/07/16 11:40 12/07/16 12:41 12/07/16 13:26 Bedside Glucose 295mg/dL (70-220) H 270mg/dL (70-220) H Hemoglobin A1c 10.2% (0-5.9) H OB Assessment/Plan Other Assessment: Status post repeat section and BTL at 35 weeks and 6 days due to labor Patient with pre-gestational diabetes, was on metformin and insulin during and prior was taking metformin 500 mg p.o. twice daily Poorly controlled diabetes based on hemoglobin A1c Patient will be started back on metformin 500 twice daily. She will also get coverage with insulin sliding scale before meals and nightly Recommended to get nutritional counseling and Endocrine consultation Routine postop care PALMER AUGUSTE MD Dec 07, 2016 12:45
[2016-12-07] MEDS ORDERED: GLUCOSE GEL 15 GRAM TUBE PO PRN ×2 (13:00)
[2016-12-07] MEDS ORDERED: GLUCOSE GEL 15 GRAM TUBE BUCCAL PRN (13:00)
[2016-12-07] MEDS ORDERED: DEXTROSE 50% 50 ML SYRINGE IV PRN ×2 (13:00)
[2016-12-07] MEDS ORDERED: GLUCAGON 1 MG INJ IM PRN (13:00)
[2016-12-07 16:00] VITALS: BP 138/86; PULSE 90; RESP 20
[2016-12-07] MEDS: INSULIN ASPART [NOVOLOG] 3 ML PEN SC SCH ×2 (17:56→21:29)
[2016-12-07] MEDS ORDERED: INSULIN ASPART [NOVOLOG] 3 ML PEN SC SCH (18:05)
[2016-12-07 19:30] VITALS: BP 140/82; PULSE 84; RESP 19
[2016-12-08] MEDS: ACCU-CHEK XX SCH (02:00)
[2016-12-08] MEDS ORDERED: ACCU-CHEK XX SCH (02:00)
[2016-12-08 05:00] VITALS: BP 134/81; PULSE 89
[2016-12-08] MEDS: IBUPROFEN 800 MG TAB PO SCH ×3 (05:34→22:20)
[2016-12-08 07:55] VITALS: BP 134/87; PULSE 85; RESP 16
[2016-12-08] MEDS: INSULIN ASPART [NOVOLOG] 3 ML PEN SC SCH ×4 (08:27→21:12)
[2016-12-08] MEDS: metFORMIN 500 MG TAB GTB SCH ×2 (08:37→17:56)
[2016-12-08] MEDS: SENNA/DOCUSATE NA (8.6MG/50MG) TAB PO SCH ×2 (08:37→22:21)
[2016-12-08] MEDS: MULTIVIT/MIN/FOLATE/IRON/PREN TAB PO SCH (08:38)
--- NOTE | 2016-12-08 12:26 | DS ---
Date/Time of Note Date/Time of Note DATE: 12/08/16 TIME: 6.pm Due to elevated blood glucose of 210-250 electrical and instrument technician nurse visited her and gave some struck And due to high blood glucose she was kept in the hospital tonight an additional 10 units of insulin was given and she will be discharged home tomorrow Obstetrical Discharge Record Final Diagnosis Final Diagnosis: delivered Section Section: Primary Complications Complications: less than 7 at 5 mins, Low weight 1500-2500gms , Very low weight >1500gms Demise Demise: Intrapartum Complications Insulin Dependent Diabete Augmentation: No Induction: No Rupture of Membranes: No Gestational Age at Rupture Laboratory Tests Test 12/07/16 12:41 12/07/16 13:26 12/07/16 17:47 12/07/16 21:11 Bedside Glucose 270mg/dL 271mg/dL 233mg/dL Hemoglobin A1c 10.2% Test 12/08/16 02:08 12/08/16 07:42 12/08/16 11:00 Bedside Glucose 164mg/dL 156mg/dL 221mg/dL Current Medications Medications (Trade) Dose Ordered Sig/Guille Route PRN Reason Start Time Stop Time Status Last Admin Dose Admin Lactated Ringer's 1,000 ml @ 125 mls/hr Q8H IV 12/05/16 16:35 12/05/16 23:42 DC 12/05/16 17:14 Cefazolin Sodium/ Dextrose 50 ml @ 100 mls/hr ONCE IVPB 12/05/16 17:00 12/05/16 23:42 DC Oxytocin/Lactated Ringer's 500 ml @ 125 mls/hr ONCE IV 12/05/16 17:00 12/05/16 23:43 DC Oxytocin/Lactated Ringer's 500 ml @ 0 mls/hr ONCE PRN IV For Hemorrhage Management 12/05/16 17:00 12/05/16 23:43 DC Methylergonovine Maleate (Methergine) 0.2 mg ONCE PRN IM VAGINAL BLEEDING 12/05/16 17:00 12/05/16 23:43 DC Carboprost Tromethamine (Hemabate) 250 mcg ONCE PRN IM VAGINAL BLEEDING 12/05/16 17:00 12/05/16 23:43 DC Misoprostol (Cytotec) 1,000 mcg ONCE PRN DE VAGINAL BLEEDING 12/05/16 17:00 12/05/16 23:43 DC Insulin Human Regular (Humulin R) 2 unit ONCE ONCE SC 12/05/16 17:00 12/05/16 17:01 DC 12/05/16 17:04 Citric Acid/ Sodium Citrate (Bicitra) 15 ml STK-MED ONCE .ROUTE 12/05/16 17:33 12/05/16 17:34 DC Ondansetron HCl (Zofran Inj) 4 mg STK-MED ONCE .ROUTE 12/05/16 17:33 12/05/16 17:34 DC Citric Acid/ Sodium Citrate (Bicitra) 30 ml ONCE ONCE PO 12/05/16 18:00 12/05/16 18:01 DC 12/05/16 17:54 Ondansetron HCl (Zofran Inj) 4 mg ONCE STAT IV 12/05/16 17:46 12/05/16 17:48 DC 12/05/16 17:55 Ondansetron HCl (Zofran Inj) 4 mg ONCE STAT IV 12/05/16 17:50 12/05/16 17:56 DC Citric Acid/ Sodium Citrate (Bicitra) 30 ml ONCE ONCE PO 12/05/16 18:00 12/05/16 18:01 DC Morphine Sulfate (Duramorph) 10 mg STK-MED ONCE .ROUTE 12/05/16 18:16 12/05/16 18:17 DC Fentanyl (Sublimaze) 100 mcg STK-MED ONCE .ROUTE 12/05/16 18:16 12/05/16 18:17 DC Metoclopramide HCl (Reglan) 10 mg STK-MED ONCE .ROUTE 12/05/16 18:16 12/05/16 18:17 DC Oxytocin (Oxytocin) 10 units STK-MED ONCE .ROUTE 12/05/16 18:16 12/05/16 18:17 DC Phenylephrine HCl (Fadi-Synephrine Inj Syg) 500 mcg STK-MED ONCE .ROUTE 12/05/16 18:16 12/05/16 18:17 DC Hydromorphone HCl (Dilaudid (Rec)) 0.2 mg PACU ORDER PRN IV MILD PAIN LEVEL 1-3 12/05/16 19:00 12/05/16 23:43 DC 12/05/16 23:30 Hydromorphone HCl (Dilaudid (Rec)) 0.4 mg PACU ORDER PRN IV MODERATE PAIN LEVEL 4-6 12/05/16 19:00 12/05/16 23:43 DC Hydromorphone HCl (Dilaudid (Rec)) 0.6 mg PACU ORDER PRN IV SEVERE PAIN LEVEL 7-10 12/05/16 19:00 12/05/16 23:43 DC Fentanyl (Sublimaze) 25 mcg PACU ORDER PRN IV MILD PAIN LEVEL 1-3 12/05/16 19:00 12/05/16 23:43 DC Fentanyl (Sublimaze) 50 mcg PACU ODER PRN IV MODERATE PAIN LEVEL 4-6 12/05/16 19:00 12/05/16 23:43 DC Fentanyl (Sublimaze) 75 mcg PACU ORDER PRN IV SEVERE PAIN LEVEL 7-10 12/05/16 19:00 12/05/16 23:43 DC Ondansetron HCl (Zofran Inj) 4 mg PACU ORDER PRN IV NAUSEA AND/OR VOMITING 12/05/16 19:00 12/05/16 23:43 DC Trimethobenzamide HCl (Tigan) 200 mg PACU ORDER PRN IM NAUSEA AND/OR VOMITING 12/05/16 19:00 12/05/16 23:43 DC Labetalol HCl (Labetalol) 5 mg PACU ORDER PRN IV HIGH BLOOD PRESSURE 12/05/16 19:00 12/05/16 23:43 DC Hydralazine HCl (Apresoline) 5 mg PACU ORDER PRN IV HIGH BLOOD PRESSURE 12/05/16 19:00 12/05/16 23:43 DC Ephedrine Sulfate 5 mg PACU ORDER PRN IV MAP LESS THAN 60 12/05/16 19:00 12/05/16 23:43 DC Meperidine HCl (Demerol) 25 mg PACU ORDER PRN IV POST-OP RIGORS 12/05/16 19:00 12/05/16 23:43 DC Diphenhydramine HCl (Benadryl) 25 mg PACU ORDER PRN IV PRURITUS 12/05/16 19:00 12/05/16 23:43 DC Midazolam HCl (Versed) 0.5 mg PACU ORDER PRN IV ANXIETY 12/05/16 19:00 12/05/16 23:43 DC Naloxone HCl (Narcan) 0.1 mg Q2M PRN IV FOR RESP RATE 8 OR LESS 12/05/16 19:00 12/05/16 23:43 DC Ketorolac Tromethamine (Toradol) 30 mg Q6H PRN IV PAIN 12/05/16 19:00 12/05/16 23:43 DC 12/05/16 23:28 Morphine Sulfate (morphine) 2 mg Q3H PRN IV PAIN LEVEL 1-5 12/05/16 19:00 12/05/16 23:43 DC Morphine Sulfate (morphine) 4 mg Q3H PRN IV PAIN LEVEL 6-10 12/05/16 19:00 12/05/16 23:43 DC Diphenhydramine HCl (Benadryl) 25 mg Q6H PRN IV ITCHING 12/05/16 19:00 12/05/16 23:43 DC Ondansetron HCl (Zofran Inj) 4 mg Q6H PRN IV NAUSEA AND/OR VOMITING 12/05/16 19:00 12/05/16 23:43 DC Zolpidem Tartrate (Ambien) 5 mg HS MAY REPEAT X 1 PRN PO INSOMNIA 12/05/16 19:00 12/05/16 23:43 DC Miscellaneous Information Duramorph: 0.2 mg Spi... GIVEN XX 12/05/16 19:00 12/05/16 23:43 DC Lactated Ringer's 1,000 ml @ 125 mls/hr Q8H IV 12/05/16 23:39 12/06/16 22:09 DC 12/06/16 17:06 Oxytocin/Lactated Ringer's 500 ml @ 125 mls/hr Q4H IV 12/05/16 23:39 12/06/16 07:38 DC 12/06/16 00:57 Acetaminophen/ Codeine Phosphate (Tylenol No.3) 1 tab Q4H PRN PO PAIN LEVEL 4-6 12/06/16 00:00 Acetaminophen/ Codeine Phosphate (Tylenol No.3) 2 tab Q4H PRN PO PAIN LEVEL 7-10 12/06/16 00:00 12/07/16 19:51 Ibuprofen (Motrin) 800 mg Q8 PO 12/06/16 22:00 12/08/16 05:34 Simethicone (Mylicon) 160 mg Q8H PRN PO DISTENSION/GAS/BLOATING 12/06/16 00:00 Senna/Docusate Sodium (Senokot-S) 1 tab BID PO 12/06/16 09:00 12/08/16 08:37 Sodium Biphosphate/ Sodium Phosphate (Fleet Enema) 133 ml DAILY PRN DE CONSTIPATION 12/06/16 00:00 Lanolin 1 applic 1 applic BEDSIDE MEDICATION PRN TOP BEDSIDE FOR JOSE TO NIPPLES 12/06/16 00:00 Oxytocin/Lactated Ringer's 500 ml @ 0 mls/hr ONCE PRN IV For Hemorrhage Management 12/06/16 00:00 Methylergonovine Maleate (Methergine) 0.2 mg ONCE PRN IM VAGINAL BLEEDING 12/06/16 00:00 Carboprost Tromethamine (Hemabate) 250 mcg ONCE PRN IM VAGINAL BLEEDING 12/06/16 00:00 Misoprostol (Cytotec) 1,000 mcg ONCE PRN DE VAGINAL BLEEDING 12/06/16 00:00 Metformin HCl (Glucophage) 500 mg WITH BREAKFAST PO 12/06/16 07:35 12/06/16 07:35 DC Metformin HCl (Glucophage) 500 mg WITH LUNCH DINNER PO 12/06/16 11:30 12/06/16 11:30 DC Prenat Multivit/ [place]/Iron/Folic Ac 1 tab 1 tab DAILY PO 12/06/16 09:00 12/08/16 08:38 Lactated Ringer's 1,000 ml @ 125 mls/hr Q8H IV 12/06/16 00:30 12/06/16 22:09 DC Oxytocin/Lactated Ringer's 500 ml @ 125 mls/hr ONCE IV 12/06/16 00:30 Methylergonovine Maleate (Methergine) 0.2 mg ONCE PRN IM VAGINAL BLEEDING 12/06/16 00:30 Diphenhydramine HCl (Benadryl) 25 mg Q6H PRN IV ITCHING 12/06/16 01:00 Ketorolac Tromethamine (Toradol) 30 mg Q6H PRN IV PAIN 12/06/16 01:00 12/09/16 00:59 UNV Ondansetron HCl (Zofran Inj) 4 mg Q4H PRN IV NAUSEA AND/OR VOMITING 12/06/16 01:00 Naloxone HCl (Narcan) 0.2 mg Q2M PRN IV DECREASED REPIRATORY RATE 12/06/16 01:00 Morphine Sulfate (morphine) 2 mg Q3H PRN IV PAIN LEVEL 1-5 12/06/16 01:00 Morphine Sulfate (morphine) 4 mg Q3H PRN IV PAIN LEVEL 6-10 12/06/16 01:00 Ketorolac Tromethamine 30 mg 30 mg Q6H PRN IV PAIN 12/06/16 01:00 12/09/16 00:59 12/06/16 18:01 Lactated Ringer's 250 ml @ 300 mls/hr Q50M ONCE IV 12/06/16 04:00 12/06/16 04:49 DC 12/06/16 03:51 Lactated Ringer's 1,000 ml @ 125 mls/hr Q8H IV 12/06/16 06:00 12/06/16 22:09 DC Lactated Ringer's (Lr) 250 ml @ 300 mls/hr Q50M ONCE IV 12/06/16 09:30 12/06/16 10:19 DC 12/06/16 09:10 Furosemide (Lasix) 20 mg ONCE ONCE IV 12/06/16 10:00 12/06/16 10:01 DC 12/06/16 09:39 Metformin HCl (Glucophage) 500 mg BID WITH MEALS GTB 12/07/16 12:30 12/08/16 08:37 Insulin Aspart (Novolog Insulin Pen) NOVOLOG *MILD* ALGORITHM WITH MEALS BEDTIME SC 12/07/16 18:05 12/07/16 18:05 DC Insulin Aspart (Novolog Insulin Pen) NOVOLOG *MODERATE* ALGORITHM WITH MEALS BEDTIME SC 12/07/16 18:05 12/08/16 08:27 Miscellaneous Information (* Miscellaneous Pharmacy Order) HYPOGLYCEMIA PROTOCOL w... ONCE ONCE XX 12/07/16 12:30 12/07/16 12:36 DC Diagnostic Test (Pha) (Accu-Chek) 1 ea 02 XX 12/08/16 02:00 Diagnostic Test (Pha) (Accu-Chek) 1 ea 02 XX 12/08/16 02:00 UNV Miscellaneous Information 1 ea NOTE XX 12/07/16 13:00 Glucose (Glutose) 15 gm Q15M PRN PO DECREASED GLUCOSE 12/07/16 13:00 Glucose (Glutose) 22.5 gm Q15M PRN PO DECREASED GLUCOSE 12/07/16 13:00 Dextrose (D50w Syringe) 25 ml Q15M PRN IV DECREASED GLUCOSE 6 13:00 Dextrose (D50w Syringe) 50 ml Q15M PRN IV DECREASED GLUCOSE 6 13:00 Glucagon (Glucagen) 1 mg Q15M PRN IM DECREASED GLUCOSE 12/07/16 13:00 Glucose (Glutose) 15 gm Q15M PRN BUCCAL DECREASED GLUCOSE 12/07/16 13:00 Class B diabetes mellitus , On induline + Metformin guide setter involved and instructed the patient regarding type and dose of induline. and Metformin. C section performed on 35th week. New born in NICU. Post day 3 Patient is doing well, Ambulatory She is afebrile Abdomen is soft , Fundus is firm Moderate amount of lochia Breasts are soft, Nipples are intact No calf tenderness. Breast feeding the new born. Incision clean [place] to be be removed in clinic Condition on Discharge Physical Assessment Voiding: Yes Bowel Movement: Yes Breast: Soft, non-tender Fundus: Firm Abdomen and Incision: clean and healing Stable to be removed in the clinic. Calf Tenderness: No Patient Condition: Stable CASANDRA TALAMANTES MD Dec 08, 2016 12:25
[2016-12-08] MEDS ORDERED: INSU200I SQ (14:12)
[2016-12-08] MEDS ORDERED: NEED-135 MC (14:15)
[2016-12-08] MEDS ORDERED: NOVO3I SC (14:20)
[2016-12-08] MEDS ORDERED: LANT3I SC (14:23)
[2016-12-08 16:00] VITALS: BP 148/82; PULSE 93; RESP 19
[2016-12-08] MEDS ORDERED: INSULIN REGULAR 10 ML INJ IV ONE (17:30)
[2016-12-08 19:30] VITALS: BP 149/96; PULSE 101; RESP 19
[2016-12-08] MEDS: ACETAMINOPHEN/CODEINE #3 TAB PO PRN (19:39)
[2016-12-09] VITALS: BP 133/85; PULSE 81; RESP 18
[2016-12-09 00:15] VITALS: BP 103/58; PULSE 79; RESP 18
[2016-12-09] MEDS: ACCU-CHEK XX SCH (02:11)
[2016-12-09 04:00] VITALS: BP 141/85; PULSE 80; RESP 20
[2016-12-09] MEDS: IBUPROFEN 800 MG TAB PO SCH ×2 (05:40→13:45)
[2016-12-09 08:00] VITALS: BP 141/83; PULSE 83; RESP 17
[2016-12-09] MEDS: INSULIN ASPART [NOVOLOG] 3 ML PEN SC SCH ×3 (08:34→16:02)
[2016-12-09] MEDS: metFORMIN 500 MG TAB GTB SCH (08:40)
[2016-12-09] MEDS: SENNA/DOCUSATE NA (8.6MG/50MG) TAB PO SCH (08:41)
[2016-12-09] MEDS: MULTIVIT/MIN/FOLATE/IRON/PREN TAB PO SCH (08:41)
--- NOTE | 2016-12-09 11:48 | QN ---
Documentation Comment patient is seen at the bedside,she is stable ambulating +Bm+voids No VB BS is not controlled VS stable Gen NAD Abd soft NT ND incision intact Genitalia no blood at perinium --->called Hospitalist () for a consult.If she is cleared from him can be dischsrd --->Instruction is given to Nurse to remove the jax PRINCESS DIAZ M.D. Dec 09, 2016 11:48
[2016-12-09] MEDS: ACETAMINOPHEN/CODEINE #3 TAB PO PRN (16:08)
[2016-12-09] MEDS ORDERED: INSULIN REGULAR 10 ML INJ SC SCH (17:35)
[2016-12-09] MEDS ORDERED: INSULIN ASPART [NOVOLOG] 3 ML PEN SC SCH (17:35)
[2016-12-09] MEDS ORDERED: INSULIN GLARGINE [LANtus] 3 ML PEN SC SCH (20:00)
== END 2016-12-09 17:00 | disposition home or self-care (01) | DRG 765 ==
LOC: OBT 12:16 → L-D 12:17 → OBT 16:30 → L-D 18:18 → PP1 23:55
PROC: 10D00Z1 Extraction of Products of Conception, Low, Open Approach (ICD-10-PCS; principal; 2016-12-05)
PROC: 0UB70ZZ Excision of Bilateral Fallopian Tubes, Open Approach (ICD-10-PCS; 2016-12-05)
DX: O36.8130 Decreased fetal movements, third trimester, not applicable or unspecified (principal); O24.12 Pre-existing type 2 diabetes mellitus, in childbirth; O13.3 Gestational [pregnancy-induced] hypertension without significant proteinuria, third trimester; E11.65 Type 2 diabetes mellitus with hyperglycemia; O32.1XX0 Maternal care for breech presentation, not applicable or unspecified; O34.211 Maternal care for low transverse scar from previous cesarean delivery; Z3A.35 35 weeks gestation of pregnancy; Z37.0 Single live birth; Z30.2 Encounter for sterilization
CPT/HCPCS: 36415; 76815; 76818; 80053; 81003; 82803; 82962; 83036; 84560; 85025; 85384; 85610; 85730; 86592; 86850; 86900; 86901; 86920; 88302; 88307; 94760; 99464; J1940; G0463; J0690; J1170; J1815; J1885; J2274; J2370; J2405; J2590; J2765; J3010; J7120

== ENCOUNTER 2018-10-06 05:52 | Emergency (ER) | payer OTHER ==
[~2018-10-06] VITALS: Ht 152.4 cm; Wt 64.5 kg
[~2018-10-06 05:52] MED LIST changes: -ASPI81TA3 PO; -METF500T4 PO; +NEED-135 MC; -NPH,100I5 SQ; -PRENAT PO
[2018-10-06 05:56] VITALS: BP 163/81; PULSE 102; RESP 20; Ht 152.4 cm; Wt 64.5 kg
--- NOTE | 2018-10-06 07:11 | ERD ---
ER Documentation Chief Complaint Chief Complaint headache x 30 minutes. denies vomiting HPI 33-year-old female, with history of poorly controlled diabetes mellitus, presents to the emergency department, complaining of global headache, the pain is dull, constant, 6/10; the patient denies blurred vision, no nausea, no vomiting, no abdominal pain, no distal weakness, numbness or tingling. No medications taken at this time for pain. No fever, no chills, no rashes. ROS All systems reviewed and are negative except as per history of present illness. Medications Home Meds Active Scripts Caaxzxkjdynrm-Eywwbqiqta-Nfygqqol-Codeine* (Fioricet w/Codeine*) [id number] Cap, 1 CAP PO TID PRN for PAIN LEVEL 1-5, #15 CAP Prov:MOMO ALVAREZ MD 10/06/18 Cephalexin* (Keflex*) 500 Mg Capsule, 500 MG PO TID for 7 Days, CAP Prov:MOMO ALVAREZ MD 10/06/18 Reported Medications [place], Insulin Disposable ([place] Pen Needle) 1 Each Dis.needle, 1 EACH [facility] AC MEALS AND BEDTIME for insulin administration, #1 1 Refill 12/08/16 Allergies Allergies: Coded Allergies: No Known Allergy (Unverified , 10/06/18) PMhx/Soc History of Surgery: Yes ( x3) Anesthesia Reaction: No Hx Neurological Disorder: No Hx Respiratory Disorders: No Hx Cardiac Disorders: No Hx Psychiatric Problems: No Hx Miscellaneous Medical Probl: Yes (OBESITY,DM) Hx Alcohol Use: No Hx Substance Use: No Hx Tobacco Use: No Physical Exam Vitals Vital Signs Date Temp Pulse Resp B/P (MAP) Pulse Ox O2 O2 Flow FiO2 Time Delivery Rate 10/06/18 98.0 102 20 163/81 99 05:56 (108) Physical Exam Const: No acute distress Head: Atraumatic Eyes: Normal Conjunctiva ENT: Normal External Ears, Nose and Mouth. Neck: Full range of motion. No meningismus. Resp: Clear to auscultation bilaterally Cardio: Regular rate and rhythm, no murmurs Abd: Soft, non tender, non distended. Normal bowel sounds Skin: No petechiae or rashes Back: No midline or flank tenderness Ext: No cyanosis, or edema Neur: Awake and alert Psych: Normal Mood and Affect Result Diagram: 10/06/18 0724 10/06/18 0724 Results 24 hrs Laboratory Tests Test 10/06/18 07:15 10/06/18 07:24 10/06/18 07:25 Urine Color STRAW Urine Clarity SLIGHTLY CLOUDY Urine pH 5.0 Urine Specific [place] 1.025 Urine Ketones NEGATIVE mg/dL Urine Nitrite NEGATIVE mg/dL Urine Bilirubin NEGATIVE mg/dL Urine Urobilinogen NEGATIVE mg/dL Urine Leukocyte Esterase NEGATIVE [place]/ul Urine Microscopic RBC 7 /HPF Urine Microscopic WBC 9 /HPF Urine Bacteria FEW /HPF Urine Hemoglobin NEGATIVE mg/dL Urine Glucose 3+ mg/dL Urine Total Protein NEGATIVE mg/dl White Blood Count 8.7 10^3/ul Red Blood Count 4.90 10^6/ul Hemoglobin 11.8 g/dl Hematocrit 37.6 % Mean Corpuscular Volume 76.7 fl Mean Corpuscular Hemoglobin 24.1 pg Mean Corpuscular 31.4 g/dl Hemoglobin Concent Red Cell Distribution Width 14.2 % Platelet Count 326 10^3/UL Mean Platelet Volume 10.8 fl Immature Granulocytes % 0.300 % Neutrophils % 73.8 % Lymphocytes % 19.7 % Monocytes % 4.7 % Eosinophils % 1.3 % Basophils % 0.2 % Nucleated Red Blood Cells % 0.0 /100WBC Immature Granulocytes # 0.030 10^3/ul Neutrophils # 6.4 10^3/ul Lymphocytes # 1.7 10^3/ul Monocytes # 0.4 10^3/ul Eosinophils # 0.1 10^3/ul Basophils # 0.0 10^3/ul Nucleated Red Blood Cells # 0.0 10^3/ul Sodium Level 138 mmol/L Potassium Level 4.6 mmol/L Chloride Level 103 mmol/L Carbon Dioxide Level 23 mmol/L Anion Gap 12 Blood Urea Nitrogen 11 mg/dl Creatinine 0.38 mg/dl Est Glomerular Filtrat > 60 mL/min Rate mL/min Glucose Level 361 mg/dl Calcium Level 9.9 mg/dl POC Beta HCG, Qualitative NEGATIVE Current Medications Medications Dose Sig/Guille Start Time Status Last (Trade) Ordered Route PRN Stop Time Admin Dose Reason Admin Ketorolac 30 mg ONCE STAT 10/06/18 DC 10/06/18 Tromethamine IM 07:16 10/06/18 07:41 (Toradol) 07:35 1 tab ONCE ONCE 10/06/18 DC 10/06/18 Acetaminophen PO 07:30 10/06/18 07:41 / 07:35 Hydrocodone Bitart ([place] (5/325)) Ondansetron 8 mg ONCE STAT 10/06/18 DC 10/06/18 HCl (Zofran ODT 07:16 10/06/18 07:41 Odt) 07:35 Procedures/MDM Vital signs stable, Physical exam unremarkable, neurovascular exam intact. Differential diagnosis include but not limited to: Classical migraine, sinusitis, visual corrective problems, side effects of medications, dehydration, electrolyte imbalance, endocrine/autoimmune medical condition, stress, anxiety, tension headache. 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 During the ED course the patient remained stable, no new complaints. The patient received treatment with Toradol IM presenting overall improvement of the symptoms. Results and clinical impression discussed with patient who agrees with management. The patient is stable to be treated outpatient and will be discharged home, some side effects of prescribed medications (headache, rash, nausea, vomiting, diarrhea, drowsiness, habituation, bleeding, hypertension, interactions with other medications) were reviewed. Follow up with the primary care provider in the next 48h has been recommended. If symptoms persist, worsen or new symptoms develop, then patient should return to the ED immediately. Instructions explained and given directly by me to the patient with acknowledgment and demonstrated understanding. Disclaimer: Inadvertent spelling and grammatical errors are likely due to EHR/dictation software use and do not reflect on the overall quality of patient care. Also, please note that the electronic time recorded on this note does not necessarily reflect the actual time of the patient encounter. Departure Diagnosis: Primary Impression: Tension headache Additional Impressions: Acute cystitis Uncontrolled type 2 diabetes mellitus Condition: Stable Additional Instructions: Thank you very much for allowing us to participate in your care. Your health and safety is our top priority at [facility]. Call your primary care doctor TOMORROW for an appointment during the next 2-4 days and bring all the information and medications prescribed. Have prescriptions filled and follow precisely the directions on the label. If the symptoms get worse and your provider is unavailable, return to the Emergency Department immediately. MOMO ALVAREZ MD Oct 06, 2018 07:11
[2018-10-06] MEDS ORDERED: ONDANSETRON (ODT) 4 MG TAB ODT STA (07:16)
[2018-10-06] MEDS ORDERED: KETOROLAC 30 MG INJ IM STA (07:16)
[2018-10-06] MEDS ORDERED: HYDROCODONE/APAP (5/325) TAB PO ONE (07:30)
[2018-10-06] MEDS ORDERED: CEPH-443 PO (08:20)
[2018-10-06] MEDS ORDERED: ABCC1C PO (08:20)
== END 2018-10-06 08:39 | disposition left against medical advice (07) ==
LOC: FTE 05:52
DX: G44.209 Tension-type headache, unspecified, not intractable (principal); N30.00 Acute cystitis without hematuria; E11.9 Type 2 diabetes mellitus without complications; E66.9 Obesity, unspecified; Z68.27 Body mass index [BMI] 27.0-27.9, adult; Z79.4 Long term (current) use of insulin
CPT/HCPCS: 36415; 80048; 81001; 81025; 85025; 96372; J1885; Z7502; Z7610; 81003